=== PATIENT | male | born 1930 | race Caucasian/White ===

== ENCOUNTER 2016-09-22 17:05 | Inpatient (IN) | payer MEDICARE, OTHER ==
[2016-09-22] MEDS ORDERED: METHYLPREDNISOLONE 125 MG/2 ML VIAL IV ONE (17:14)
[2016-09-22] MEDS ORDERED: NS 1,000 ML IV ONE (17:14)
[2016-09-22 17:23] LABS: ALLEN'S TEST PASS; BEb -3.3 (+/- 2); TCO2 22.4 MMOL/L (23-27)
[2016-09-22 17:26] LABS: ABG Draw Site Right Radial
--- NOTE | 2016-09-22 17:28 | EDPRACDOC ---
- General Information Chief Complaint: Dyspnea/Resp distress Stated Complaint: SYNCOPAL Time Seen by Provider: 09/22/16 17:07 Information Source: Patient Mode Of Arrival: Ambulance Home Medications: Home Medications Albuterol Sulfate [Proair Hfa] 2 puff INH Q4-6H PRN 09/22/16 Atorvastatin Calcium [Lipitor] 20 mg PO QHS 09/22/16 Donepezil HCl 5 mg PO DAILY 09/22/16 Finasteride [Proscar] 5 mg PO DAILY 09/22/16 Fluticasone/Vilanterol [Breo Ellipta 100-25 Mcg INH] 1 puff INH BID 09/22/16 Gabapentin 600 mg PO BID 09/22/16 Glimepiride [Amaryl] 2 mg PO DAILY 09/22/16 Lisinopril [Prinivil] 10 mg PO DAILY 09/22/16 Tamsulosin HCl [Flomax] 0.4 mg PO QHS 09/22/16 Verapamil HCl [Verapamil Sr] 120 mg PO BID 09/22/16 Allergies/Adverse Reactions: Allergies Allergy/AdvReac Type Severity Reaction Status Date / Time No Known Allergies Allergy Verified 09/22/16 20:59 - History of Present Illness 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 HE WAS BEING SEEN THERE FOR FOLLOW UP AND CONTINUED SICKNESS. PT WAS GIVEN ANTIBIOTICS FOR PNA. PT WAS AT THE OFFICE TODAY AND HAD A PERIOD OF UNRESPONSIVENESS. 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/Treatments Given Neb Treatment(Albuterol) EMS Treatment ALS ED Past Medical History - History Reviewed Yes Nurses notes reviewed and agree except as marked - Patient Medical History Cardiac History: Reports: Hypertension, Hypercholesterolemia Respiratory History: Reports: COPD Systemic History: Reports: Diabetes EDM Review of Systems - Review of Systems ROS Negative Except as Marked: Yes All systems reviewed and were negative except as marked - Physical Exam Constitutional: Alert Oriented to: Time, Person, Place Last recorded Vital Signs: Last Vital Signs Temp 98.8 F 09/22/16 17:13 Pulse 87 09/22/16 17:13 Resp 22 09/22/16 17:13 BP 119/59 L 09/22/16 17:13 Pulse Ox 94 09/22/16 17:13 Oxygen Pulse Oxygen Saturation 94 O2 Device Room Air Oxygen Flow Rate Fraction of Inspired Oxygen ( FIO2) Exam: PT VERY HARD OF HEARING - HEENT Head: Normal ( normocephalic) Eye Exam: Normal (PERRL, EOMI, Sclera white) Oropharynx: Normal (Pharynx:Moist without exudate,Gums-no swelling) Tympanic Membrane: Normal Nose: No Symptoms Reported (septum midline) Neck: Normal (FROM, trachea at midline) - Respiratory/Cardiovascular Respiratory: Rales, Rhonchi, Wheezes Cardiovascular: Normal (RRR without murmur, gallop or rub) - GI Auscultation: Normal (NABS) Palpation: Normal (Soft,No rebound or guarding, non distended) Tenderness: Non tender Antoine's Sign: Negative Rectal Exam: Deferred - Musculoskeletal Back: Normal (Non-Tender) Extremities: Normal (Normal tone, Pulses 2+ No cyanosis or edema, FROM) - Integumentary Skin: Normal, Warm, Dry Lymphatics: Normal (no adenopathy) - Neurologic Memory Impaired: Normal Motor Function: Normal (Normal tone, Pulses 2+ No cyanosis or edema, FROM) Cranial Nerve: Normal (CN II-X11 intact sensation, strength 5/5) Cerebellar: Normal Mood Description: Normal Perception: Normal ED Procedures - Central Line Informed of risks, benefits and alternatives described.: Yes Central Line Informed Consent Signed: Written Indication: Hypotension, Volume Resuscitation Line Procedure: Chlorahexadine, Sterile drapes applied, Sterile dressing applied Equipment used during procedure: Hat and Mask, Sterile Gown, Sterile Gloves Line Lumen: triple Central Line Postion: femoral (R) Anesthesia: Lidocaine cc's of anesthesia: 5 Line Position approached and secured by standard fashion: sutured, good blood return Complications: none Post Central Line placement CXR: Not ordered Notes: US ASSISTED FEMORAL LINE PLACEMENT. PT TOLERATED WELL ED SOB MDM - Differential Diagnosis Differential Diagnosis: Pnuemonia, Other - Results Result Diagrams: 09/23/16 06:15 09/23/16 06:15 - EKG EKG #1 EKG Time: 17:17 -: Yes EKG interpreted by me Rate: bpm: 84 Camilla: Normal Rhythm: Paced Block: None Hypertrophy: None ST: Normal - Departure Disposition: Admit IP To This Hospital Condition: Stable Final Diagnosis: Dehydration, Encounter for central line placement Pneumonia Qualifiers: Pneumonia type: due to unspecified organism Laterality: unspecified laterality Lung location: unspecified part of lung Qualified Code(s): J18.9 - Pneumonia, unspecified organism Education/Counseling Given To: Patient Education/Counseling Given Regarding: Diagnosis, Treatment, Prognosis, Follow Up Decision to Admit Time: 19:10 Decision to admit date: 09/24/16 Decision to admit: from ED - Physician Consulted Hospitalist Time Called: 19:10 Provider Called: Praneeth Reno Time Support Services Rep Returned Call: 19:10
[2016-09-22 17:56] LABS: MPV 8.2 fL (7.4-10.4)
[2016-09-22 18:12] LABS: PARTIAL THROMB. TIME 28.7 SEC (22-35); PT-INR 1.1
[2016-09-22 18:13] LABS: BLOOD UREA NITROGEN 53 MG/DL (9-20); CALC CORRECTED 9.7 MG/DL (8.4-10.2); CALCULATED OSMOLALITY 285 MOs/Kg (270-290); CHLORIDE 102 mEq/L (98-107); CPK TOTAL WITH POSSIBLE MB 229 IU/L (55-170); GLUCOSE 289 MG/DL (70-99); SODIUM LEVEL 135 mEq/L (137-146); TOTAL PROTEIN 6.5 G/DL (6.3-8.2)
[2016-09-22 18:28] LABS: CPKMB 7.2 ng/mL (0-4.5); CPKMB RELATIVE INDEX 3.1 (0.0-2.2)
--- NOTE | 2016-09-22 19:02 | DIRPT ---
CLINICAL DATA: Short of breath for 1 week. Cough/congestion. Weakness. EXAM: CHEST 2 VIEW COMPARISON: None FINDINGS: Lateral view degraded by patient arm position. Moderate thoracic spondylosis. Apical lordotic frontal radiograph, with minimal exclusion of the upper chest. Hyperinflation. Midline trachea. Pacer with leads at right atrium and right ventricle. No lead discontinuity. Borderline cardiomegaly. Suspect mild left base airspace disease. IMPRESSION: Suspicion of mild left base airspace disease. of indeterminate acuity, given absence of prior exams. Followup PA and lateral chest X-ray is recommended in 3-4 weeks following trial of antibiotic therapy to ensure resolution and exclude underlying malignancy. Electronically Signed By: Linus Lamar M.D. On: 09/22/2016 19:00
--- NOTE | 2016-09-22 19:07 | DIRPT ---
CLINICAL DATA: Altered mental status. Syncope. EXAM: CT HEAD WITHOUT CONTRAST TECHNIQUE: Contiguous axial images were obtained from the base of the skull through the vertex without intravenous contrast. COMPARISON: 07/14/2016 FINDINGS: Sinuses/Soft tissues: Minimal ethmoid air cell mucosal thickening. Other paranasal sinuses are and mastoid air cells are clear. Intracranial: Mild low density in the periventricular white matter likely related to small vessel disease. Expected cerebral and cerebellar volume loss for age. Bilateral vertebral and carotid intracranial atherosclerosis. No mass lesion, hemorrhage, hydrocephalus, acute infarct, intra-axial, or extra-axial fluid collection. IMPRESSION: 1. Normal head CT for age. 2. Minimal sinus disease. Electronically Signed By: Linus Lamar M.D. On: 09/22/2016 19:05
[2016-09-22 19:35] LABS: SEG NEUTROPHIL 95 % (45-76); TOTAL CELL COUNT 100
[2016-09-22] MEDS ORDERED: ACETAMINOPHEN 325 MG/TAB TABLET PO PRN (19:35)
[2016-09-22] MEDS ORDERED: ONDANSETRON HCL 4 MG/2 ML VIAL IV PRN (19:35)
[2016-09-22] MEDS ORDERED: GLUCAGON 1 MG VIAL SQ PRN (19:36)
[2016-09-22] MEDS ORDERED: DEXTROSE 25 GM/50 ML PFS IV PRN (19:36)
[2016-09-22] MEDS ORDERED: GLUCOSE (ORAL GEL) 15 GM TUBE PO PRN (19:36)
[2016-09-22] MEDS ORDERED: ALBUTEROL 0.083% 3 ML NEB NEB PRN (19:36)
--- NOTE | 2016-09-22 20:09 | HISTPHYS ---
- Chief Complaint Pneumonia - History of Present Illness This is a pleasant 85-year-old male who is physically quite fit and works out of plan if it is several times a week, who was recently treated as an outpatient for community-acquired pneumonia by his primary care physician but has continued to be weak and was taken to urgent care by his son this morning due to increased tremors. While he was at urgent care, there is concern the me he may have experienced some syncope, but his son tells me that he feels a because his father was week he was just in a deep sleep and woke up slightly confused. In any case, they say that he has been short of breath and coughing, though does not productive of anything. He has not had any fevers at home. He completed a course of p.o. azithromycin 2 days ago, but continued to be weak. Here in the emergency department, he was found to have what looks like a basilar pneumonia. Denies any chest pain, diarrhea, nausea, vomiting, or rashes on the skin. No weight loss. He has had a decrease in appetite. - Medical History Cardiac History: Reports: Hypertension, Hypercholesterolemia Respiratory History: Reports: COPD Systemic History: Reports: Diabetes - Medictions/Allergies Allergies No Known Allergies Allergy (Verified 09/22/16 17:18) Home Medications Albuterol Sulfate [Proair Hfa] 2 puff INH Q4-6H PRN 09/22/16 Atorvastatin Calcium [Lipitor] 20 mg PO QHS 09/22/16 Donepezil HCl 5 mg PO DAILY 09/22/16 Finasteride [Proscar] 5 mg PO DAILY 09/22/16 Fluticasone/Vilanterol [Breo Ellipta 100-25 Mcg INH] 1 puff INH BID 09/22/16 Gabapentin 600 mg PO BID 09/22/16 Glimepiride [Amaryl] 2 mg PO DAILY 09/22/16 Lisinopril [Prinivil] 10 mg PO DAILY 09/22/16 Tamsulosin HCl [Flomax] 0.4 mg PO QHS 09/22/16 Verapamil HCl [Verapamil Sr] 120 mg PO BID 09/22/16 - Social History Smoking Status: Former smoker - Review of Systems Yes All systems reviewed and were negative except as marked (And as mentioned in the history of present illness above.) - Physical Exam Vital Signs: Initial Vitals Temperature 98.8 F 09/22/16 17:13 Pulse Rate 87 09/22/16 17:13 Respiratory Rate 22 09/22/16 17:13 Blood Pressure 119/59 L 09/22/16 17:13 Pulse Oxygen Saturation 94 09/22/16 17:13 Oriented to: Time, Person, Place Exam: Elderly male appearing his stated age. He is awake and alert, hard of hearing. - HEENT Head: Normal (normocephalic,atraumatic, trachea midline) Eye: Normal (EOMI, Sclera white) Oropharynx: Normal (moist) Nose: No Symptoms Reported (without discharge or bleeding) Respiratory: Normal - CTA (Clear to auscultation bilaterally, no wheezing,rales or rhonchi. No use of accessory muscles) Cardiovascular: Normal (RRR, no murmurs, rubs or gallops) - GI Palpation: Normal (soft, non distended and nontender) - Musculoskeletal Extremities: Normal (normal tone, no cyanosis or edema) - Focused CV Perfusion Exam Vital Signs: Last Vital Signs Temp 98.8 F 09/22/16 17:13 Pulse 87 09/22/16 17:13 Resp 22 09/22/16 17:13 BP 119/59 L 09/22/16 17:13 Pulse Ox 94 09/22/16 17:13 - Lab Results Laboratory Tests 09/22/16 09/22/16 09/22/16 17:15 17:40 17:40 WBC 20.7 H Hgb 12.1 L INR pO2 59.0 L Sodium 135 L Potassium 5.0 BUN 53 H Creatinine 2.50 H 09/22/16 17:40 WBC Hgb INR 1.1 pO2 Sodium Potassium BUN Creatinine - Diagnostic Findings Chest x-ray: Lateral view degraded by patient arm position. Moderate thoracic spondylosis. Apical lordotic frontal radiograph, with minimal exclusion of the upper chest. Hyperinflation. Midline trachea. Pacer with leads at right atrium and right ventricle. No lead discontinuity. Borderline cardiomegaly. Suspect mild left base airspace disease. - Assessment (1) Pneumonia J18.9 - PNEUMONIA, UNSPECIFIED ORGANISM Acute Qualifiers: Pneumonia type: due to unspecified organism Laterality: unspecified laterality Lung location: unspecified part of lung Qualified Code(s): J18.9 - Pneumonia, unspecified organism With hypoxia, weakness and anorexia. Treat empirically with IV azithromycin and Rocephin. Son at the bedside thinks that his father completely better, but then got worse again after he developed some viral syndrome with congestion. Could consider change to different agent if he does not improve on this regimen quickly. RT consulted for O2 supplementation. Evidence based care pneumonia order set has been utilized. (2) GAURANG (acute kidney injury) N17.9 - ACUTE KIDNEY FAILURE, UNSPECIFIED Acute Baseline renal function is unknown, will hold his TANYA-inhibitor and follow renal function daily. (3) Weakness R53.1 - WEAKNESS Acute Likely due to his pneumonia and illness. Physical therapy has been consulted. (4) HLD (hyperlipidemia) E78.5 - HYPERLIPIDEMIA, UNSPECIFIED Acute Continue home statin (5) Dementia F03.90 - UNSPECIFIED DEMENTIA WITHOUT BEHAVIORAL DISTURBANCE Acute Continue home medication. He does not have a history of behavioral disturbance. (6) DMII (diabetes mellitus, type 2) E11.9 - TYPE 2 DIABETES MELLITUS WITHOUT COMPLICATIONS Acute Check hemoglobin A1c and urine microalbumin. Diabetic diet when eating. Continue home medication, as well as q.a.c. and HS sliding scale insulin. Case Care Discussed with: Patient, Family Total Time: 49
[2016-09-22] MEDS ORDERED: Non-Formulary Medication ITEM (Gabapentin [Gabapentin] 600 MG) PO SCH (21:00)
[2016-09-22] MEDS ORDERED: VERAPAMIL HCL 120 MG PO SCH (21:00)
[2016-09-22] MEDS: NS 1,000 ML IV SCH (22:09)
[2016-09-22] MEDS: AZITHROMYCIN 500 MG in D5W 250 ML IV SCH (22:09)
[2016-09-22] MEDS: ENOXAPARIN 30 MG/0.3 ML PFS SQ SCH (22:09)
[2016-09-22] MEDS: GABAPENTIN 300 MG CAP PO SCH (22:10)
[2016-09-22] MEDS: Verapamil 120 MG TAB PO SCH (22:10)
[2016-09-22] MEDS: TAMSULOSIN HCL 0.4 MG CAP PO SCH (22:10)
[2016-09-22] MEDS: REGULAR INSULIN 100 UNITS/ML - 3 ML VIAL SQ SCH (22:10)
[2016-09-22] MEDS: ATORVASTATIN 20 MG TAB PO SCH (22:10)
[2016-09-22 22:20] LABS: CPKMB 17.4 ng/mL (0-4.5)
[2016-09-22] MEDS: CEFTRIAXONE 1 GM in D5W 100 ML IV SCH (23:27)
[2016-09-23 06:31] LABS: MPV 8.6 fL (7.4-10.4)
[2016-09-23] MEDS: REGULAR INSULIN 100 UNITS/ML - 3 ML VIAL SQ SCH ×4 (06:33→20:51)
[2016-09-23] MEDS: GLIMEPIRIDE 2 MG TAB PO SCH (06:34)
[2016-09-23 06:50] LABS: LEUKOCYTES/URINE 2+ (NEGATIVE); NITRITE/URINE NEG (NEGATIVE); RBC/URINE 20-30 (0-2); URINE OCCULT BLOOD 2+ (NEG/TRACE); WBC/URINE TNTC (0-2)
[2016-09-23 07:20] LABS: BLOOD UREA NITROGEN 57 MG/DL (9-20); CALCIUM 8.4 MG/DL (8.4-10.2); CALCULATED OSMOLALITY 292 MOs/Kg (270-290); CHLORIDE 102 mEq/L (98-107); GLUCOSE 343 MG/DL (70-99); SODIUM LEVEL 136 mEq/L (137-146)
[2016-09-23] MEDS: Verapamil 120 MG TAB PO SCH ×2 (07:56→19:53)
[2016-09-23] MEDS: GABAPENTIN 300 MG CAP PO SCH ×2 (07:56→19:53)
[2016-09-23] MEDS: DONEPEZIL HCL 5 MG TAB PO SCH (07:56)
[2016-09-23] MEDS: FINASTERIDE 5 MG TAB PO SCH (07:56)
[2016-09-23] MEDS ORDERED: Vaccine Screening Complete SCH (12:00)
--- NOTE | 2016-09-23 13:28 | GENMEDPROG ---
Chief Complaint: Patient feeling rather weak. Not feeling much improved at all. Subjective Note: 85-year-old gentleman admitted to our facility with pneumonia and renal failure. I have requested labs from Dr. Fernandes is office. We have no prior labs on the patient and appears that his creatinine is 2.4. Notes Reviewed: Yes Events from last night noted and discussed with Clinical Staff Current Medication List: Reviewed Currently: Reports: Cough, JIMÉNEZ, SOB. Denies: Nausea and Vomiting, Reflux Sx, Abdominal Pain DVT Prophylaxis: Yes - Physical Examination Vital Signs and I&O: Last Vital Signs Temp 97.6 F 09/23/16 11:22 Pulse 62 09/23/16 11:22 Resp 16 09/23/16 11:22 BP 115/59 L 09/23/16 11:22 Pulse Ox 93 09/23/16 11:22 Oxygen Pulse Oxygen Saturation 93 O2 Device Room Air Oxygen Flow Rate 2 Fraction of Inspired Oxygen ( FIO2) Intake & Output 09/20/16 09/21/16 09/22/16 09/23/16 23:59 23:59 23:59 23:59 Intake Total 200 1298 Output Total 700 Balance 200 598 Patient's weight 67.631 kg 67.585 kg General: Alert HEENT: Normal (Normocephalic, atraumatic;EOMI.Sclera white, Nares patent, without discharge or bleeding. No oropharyngeal lesions or erythema. Mucous membranes are dry.) Neck: Non-tender, Full range of motion, Normal Trachea alignment, Normal inspection (No cervical lymphadenopathy. No supraclavicular lymphadenopathy.), No Masses palpable, Supple Lymphatics: Normal (No lymph node swelling or pain.) Respiratory: Accessory Muscle Use, Diminished, Rales, Wheezes Cardiovascular: Regular rate and rhythm (No bradycardia or tachycardia), Normal S1, No Gallops,Rubs/Murmurs, Normal S2, Good Pedal Pulses (DP pulses 2+ bilaterally) GI: Normal bowel sounds (normal active sounds), Soft (non-distended), Non tender , No hepatospenomegaly, No masses Extremities/Musculoskeletal: Normal pulses (DP pulses 2+ bilaterally) Skin: Warm,Dry and Intact, No rashes, No significant lesion Neurological: Strength at 5/5 X4 ext (Motor 5/5 throughout.), Normal tone, Cranial nerves 3-12 NL ( 2-12 grossly intact.) Psych/Mental Status: Appropriate, Normal Affect Lab/DI/Studies Reviewed: Laboratory Results - last 24 hr 09/22/16 09/22/16 09/22/16 17:15 17:40 17:40 WBC 20.7 H RBC 4.56 L Hgb 12.1 L Hct 37.3 L MCV 82 MCH 26.6 L MCHC 32.5 L RDW 15.3 H Plt Count 119 L MPV 8.2 Neut % (Auto) Cancelled Lymph % (Auto) Cancelled [place] % (Auto) Cancelled Eos % (Auto) Cancelled Baso % (Auto) Cancelled Absolute Neuts (auto) Cancelled Absolute Lymphs (auto) Cancelled Seg Neuts % (Manual) 95 H Band Neutrophils % 2 Lymphocytes % (Manual) 1 L Monocytes % (Manual) 2 Absolute Neutrophils 20.08 H Absolute Lymphocytes 0.21 L Platelet Estimate Dec RBC Morphology Norm PT INR APTT Puncture Site Right radial pH 7.380 pCO2 36.0 pO2 59.0 L HCO3 21.3 L Total CO2 22.4 L Base Excess -3.3 L FiO2 % 21% Specimen Drawn By Garsa Sodium 135 L Potassium 5.0 Chloride 102 Carbon Dioxide 22 Anion Gap 16 BUN 53 H Creatinine 2.50 H Estimated GFR (MDRD) 25 L Glucose 289 H POC Capillary Glucose Hemoglobin A1c Calculated Osmolality 285 Lactic Acid Calcium 9.0 Corrected Calcium 9.7 Total Bilirubin 1.1 AST 30 ALT 24 Alkaline Phosphatase 114 Creatine Kinase 229 H CK-MB (CK-2) 7.2 H CK-MB (CK-2) Rel Index 3.1 H Troponin I 0.03 [id number]-Blaoewovaum Pept 670 Total Protein 6.5 Albumin 3.3 L Urine Color Urine Clarity Urine pH Ur Specific Webb Urine Protein Urine Glucose (UA) Urine Ketones Urine Occult Blood Urine Nitrite Urine Bilirubin Urine Urobilinogen Ur Leukocyte Esterase Urine RBC Urine WBC Urine WBC Clumps Ur Epithelial Cells Urine Bacteria Urine Mucus 09/22/16 09/22/16 09/22/16 17:40 17:40 17:40 WBC RBC Hgb Hct MCV MCH MCHC RDW Plt Count MPV Neut % (Auto) Lymph % (Auto) [place] % (Auto) Eos % (Auto) Baso % (Auto) Absolute Neuts (auto) Absolute Lymphs (auto) Seg Neuts % (Manual) Band Neutrophils % Lymphocytes % (Manual) Monocytes % (Manual) Absolute Neutrophils Absolute Lymphocytes Platelet Estimate RBC Morphology PT 11.4 H INR 1.1 APTT 28.7 Puncture Site pH pCO2 pO2 HCO3 Total CO2 Base Excess FiO2 % Specimen Drawn By Sodium Potassium Chloride Carbon Dioxide Anion Gap BUN Creatinine Estimated GFR (MDRD) Glucose POC Capillary Glucose Hemoglobin A1c 7.2 H Calculated Osmolality Lactic Acid 1.3 Calcium Corrected Calcium Total Bilirubin AST ALT Alkaline Phosphatase Creatine Kinase CK-MB (CK-2) CK-MB (CK-2) Rel Index Troponin I [id number] Pept Total Protein Albumin Urine Color Urine Clarity Urine pH Ur Specific Webb Urine Protein Urine Glucose (UA) Urine Ketones Urine Occult Blood Urine Nitrite Urine Bilirubin Urine Urobilinogen Ur Leukocyte Esterase Urine RBC Urine WBC Urine WBC Clumps Ur Epithelial Cells Urine Bacteria Urine Mucus 09/22/16 09/22/16 09/22/16 20:59 21:05 23:55 WBC RBC Hgb Hct MCV MCH MCHC RDW Plt Count MPV Neut % (Auto) Lymph % (Auto) [place] % (Auto) Eos % (Auto) Baso % (Auto) Absolute Neuts (auto) Absolute Lymphs (auto) Seg Neuts % (Manual) Band Neutrophils % Lymphocytes % (Manual) Monocytes % (Manual) Absolute Neutrophils Absolute Lymphocytes Platelet Estimate RBC Morphology PT INR APTT Puncture Site pH pCO2 pO2 HCO3 Total CO2 Base Excess FiO2 % Specimen Drawn By Sodium Potassium Chloride Carbon Dioxide Anion Gap BUN Creatinine Estimated GFR (MDRD) Glucose POC Capillary Glucose 326 H Hemoglobin A1c Calculated Osmolality Lactic Acid Calcium Corrected Calcium Total Bilirubin AST ALT Alkaline Phosphatase Creatine Kinase 579 H CK-MB (CK-2) 17.4 H CK-MB (CK-2) Rel Index 3.0 H Troponin I 0.04 0.04 Qaz-[id number]-Mdeyzanabvl Pept Total Protein Albumin Urine Color Urine Clarity Urine pH Ur Specific Webb Urine Protein Urine Glucose (UA) Urine Ketones Urine Occult Blood Urine Nitrite Urine Bilirubin Urine Urobilinogen Ur Leukocyte Esterase Urine RBC Urine WBC Urine WBC Clumps Ur Epithelial Cells Urine Bacteria Urine Mucus 09/23/16 09/23/16 09/23/16 06:01 06:15 06:15 WBC 17.0 H RBC 4.37 L Hgb 11.7 L Hct 35.8 L MCV 82 MCH 26.7 L MCHC 32.7 L RDW 15.5 H Plt Count 111 L MPV 8.6 Neut % (Auto) Lymph % (Auto) [place] % (Auto) Eos % (Auto) Baso % (Auto) Absolute Neuts (auto) Absolute Lymphs (auto) Seg Neuts % (Manual) Band Neutrophils % Lymphocytes % (Manual) Monocytes % (Manual) Absolute Neutrophils Absolute Lymphocytes Platelet Estimate RBC Morphology PT INR APTT Puncture Site pH pCO2 pO2 HCO3 Total CO2 Base Excess FiO2 % Specimen Drawn By Sodium 136 L Potassium 4.4 Chloride 102 Carbon Dioxide 21 L Anion Gap 17 H BUN 57 H Creatinine 2.40 H Estimated GFR (MDRD) 26 L Glucose 343 H POC Capillary Glucose 351 H Hemoglobin A1c Calculated Osmolality 292 H Lactic Acid Calcium 8.4 Corrected Calcium Total Bilirubin AST ALT Alkaline Phosphatase Creatine Kinase CK-MB (CK-2) CK-MB (CK-2) Rel Index Troponin I [id number] Pept Total Protein Albumin Urine Color Urine Clarity Urine pH Ur Specific Webb Urine Protein Urine Glucose (UA) Urine Ketones Urine Occult Blood Urine Nitrite Urine Bilirubin Urine Urobilinogen Ur Leukocyte Esterase Urine RBC Urine WBC Urine WBC Clumps Ur Epithelial Cells Urine Bacteria Urine Mucus 09/23/16 09/23/16 06:25 11:23 WBC RBC Hgb Hct MCV MCH MCHC RDW Plt Count MPV Neut % (Auto) Lymph % (Auto) [place] % (Auto) Eos % (Auto) Baso % (Auto) Absolute Neuts (auto) Absolute Lymphs (auto) Seg Neuts % (Manual) Band Neutrophils % Lymphocytes % (Manual) Monocytes % (Manual) Absolute Neutrophils Absolute Lymphocytes Platelet Estimate RBC Morphology PT INR APTT Puncture Site pH pCO2 pO2 HCO3 Total CO2 Base Excess FiO2 % Specimen Drawn By Sodium Potassium Chloride Carbon Dioxide Anion Gap BUN Creatinine Estimated GFR (MDRD) Glucose POC Capillary Glucose 253 H Hemoglobin A1c Calculated Osmolality Lactic Acid Calcium Corrected Calcium Total Bilirubin AST ALT Alkaline Phosphatase Creatine Kinase CK-MB (CK-2) CK-MB (CK-2) Rel Index Troponin I [id number]-[id number] Pept Total Protein Albumin Urine Color Yellow Urine Clarity Cldy Urine pH 6.0 Ur Specific Webb 1.010 Urine Protein 1+ H Urine Glucose (UA) 3+ Urine Ketones Neg Urine Occult Blood 2+ H Urine Nitrite Neg Urine Bilirubin Neg Urine Urobilinogen <2.0 Ur Leukocyte Esterase 2+ H Urine RBC 20-30 H Urine WBC Tntc H Urine WBC Clumps Present H Ur Epithelial Cells 1+ Urine Bacteria 2+ H Urine Mucus Occ - Assessment (1) Pneumonia Acute J18.9 - PNEUMONIA, UNSPECIFIED ORGANISM Qualifiers: Pneumonia type: due to unspecified organism Laterality: unspecified laterality Lung location: unspecified part of lung Qualified Code(s): J18.9 - Pneumonia, unspecified organism Comment/Plan: Continue current antibiotics. Check labs from Dr. Fernandes is office. Patient still requiring oxygen supplementation. (2) GAURANG (acute kidney injury) Acute N17.9 - ACUTE KIDNEY FAILURE, UNSPECIFIED Comment/Plan: I have requested records from Dr. Fernandes is office regarding creatinine in the past 3 years. We are awaiting results. (3) Weakness Acute R53.1 - WEAKNESS Comment/Plan: Likely due to his pneumonia and illness. Physical therapy has been consulted. (4) HLD (hyperlipidemia) Acute E78.5 - HYPERLIPIDEMIA, UNSPECIFIED Qualifiers: Hyperlipidemia type: other hyperlipidemia Qualified Code(s): E78.4 - Other hyperlipidemia Comment/Plan: Continue home statin (5) Dementia Acute F03.90 - UNSPECIFIED DEMENTIA WITHOUT BEHAVIORAL DISTURBANCE Qualifiers: Dementia type: Alzheimer's disease Alzheimer's disease onset: late-onset Dementia behavioral disturbance: without behavioral disturbance Qualified Code (s): G30.1 - Alzheimer's disease with late onset; F02.80 - Dementia in other diseases classified elsewhere without behavioral disturbance Comment/Plan: Continue home medication. He does not have a history of behavioral disturbance. 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 Diabetic diet when eating. Continue home medication, as well as q.a.c. and HS sliding scale insulin. - Plan Continue present plan. Continue to monitor for improvement. Await laboratory data from Dr. Fernandes is office. Disposition Plan: Hopefully home. Case Care Discussed with: Patient, Family Education/Counseling Given To: Patient, Family Member Education/Counseling Given Regarding: Diagnosis, Treatment, Prognosis, Follow Up , Disposition Plan Total Time: 45 minutes. Critical Care: No Couseling Time (>50% in counseling/coordination): No
[2016-09-23] MEDS: ENOXAPARIN 30 MG/0.3 ML PFS SQ SCH (17:25)
[2016-09-23] MEDS: NS 1,000 ML IV SCH ×2 (17:53→19:49)
[2016-09-23] MEDS: AZITHROMYCIN 500 MG in D5W 250 ML IV SCH (19:49)
[2016-09-23] MEDS: ATORVASTATIN 20 MG TAB PO SCH (19:53)
[2016-09-23] MEDS: TAMSULOSIN HCL 0.4 MG CAP PO SCH (19:53)
[2016-09-23] MEDS: CEFTRIAXONE 1 GM in D5W 100 ML IV SCH (20:53)
[2016-09-24 05:23] LABS: MPV 9.4 fL (7.4-10.4)
[2016-09-24 05:35] LABS: BLOOD UREA NITROGEN 57 MG/DL (9-20); CALCIUM 8.1 MG/DL (8.4-10.2); CALCULATED OSMOLALITY 275 MOs/Kg (270-290); CHLORIDE 103 mEq/L (98-107); GLUCOSE 111 MG/DL (70-99); SODIUM LEVEL 134 mEq/L (137-146)
[2016-09-24] MEDS: REGULAR INSULIN 100 UNITS/ML - 3 ML VIAL SQ SCH ×4 (05:59→20:05)
[2016-09-24] MEDS ORDERED: PNEUMOCOCCAL 0.5 ML VIAL IM ONE (08:00)
[2016-09-24] MEDS ORDERED: FLU VACCINE (Afluria) 0.5 ML DOSE IM ONE (08:00)
[2016-09-24] MEDS: GLIMEPIRIDE 2 MG TAB PO SCH (09:33)
[2016-09-24] MEDS: DONEPEZIL HCL 5 MG TAB PO SCH (09:33)
[2016-09-24] MEDS: GABAPENTIN 300 MG CAP PO SCH ×2 (09:34→20:06)
[2016-09-24] MEDS: Verapamil 120 MG TAB PO SCH ×2 (09:34→20:05)
[2016-09-24] MEDS: FINASTERIDE 5 MG TAB PO SCH (09:34)
--- NOTE | 2016-09-24 10:11 | GENMEDPROG ---
Chief Complaint: sob similar to yesterday Notes Reviewed: Yes Events from last night noted and discussed with Clinical Staff Current Medication List: Reviewed Currently: Reports: Cough, JIMÉNEZ, SOB. Denies: Nausea and Vomiting, Reflux Sx, Abdominal Pain DVT Prophylaxis: Yes - Physical Examination Vital Signs and I&O: Last Vital Signs Temp 97.7 F 09/24/16 08:00 Pulse 74 09/24/16 08:00 Resp 17 09/24/16 08:00 BP 132/69 09/24/16 08:00 Pulse Ox 94 09/24/16 08:00 Oxygen Pulse Oxygen Saturation 94 O2 Device Room Air Oxygen Flow Rate 2 Fraction of Inspired Oxygen ( FIO2) Intake & Output 09/21/16 09/22/16 09/23/16 09/24/16 23:59 23:59 23:59 23:59 Intake Total 200 2242 240 Output Total 1800 800 Balance 200 442 -560 Patient's weight 67.631 kg 67.585 kg 68.81 kg General: Alert, Oriented x3, No acute distress, Well appearing, Well nourished HEENT: Normal (Normocephalic, atraumatic;EOMI.Sclera white, Nares patent, without discharge or bleeding. No oropharyngeal lesions or erythema. Mucous membranes are dry.), Other (poor hearing) Neck: Non-tender, Normal Trachea alignment, Normal inspection (No cervical lymphadenopathy. No supraclavicular lymphadenopathy.), No Masses palpable, Limited range of motion, Supple Lymphatics: Normal (no adenopathy) Respiratory: Diminished, Rales, Rhonchi, Wheezes (vv faint) Cardiovascular: Regular rate and rhythm (No bradycardia or tachycardia), Normal S1, No Gallops,Rubs/Murmurs, Normal S2, Good Pedal Pulses (DP pulses 2+ bilaterally) GI: Normal bowel sounds (normal active sounds), Soft (non-distended), Non tender , No hepatospenomegaly, No masses Extremities/Musculoskeletal: Normal pulses (DP pulses 2+ bilaterally), Swelling (LLE 1+ EDEMA RLE NONE), Edema (LLE 1+ EDEMA RLE NONE). negative: Clubbing, Cyanosis Skin: Warm,Dry and Intact, No rashes, No significant lesion Neurological: Normal tone, Cranial nerves 3-12 NL ( 2-12 grossly intact.) Psych/Mental Status: Appropriate, Normal Affect Lab/DI/Studies Reviewed: 09/24/16 04:25 09/24/16 04:25 Laboratory Results - last 24 hr 09/23/16 09/23/16 09/23/16 11:23 16:18 20:50 WBC RBC Hgb Hct MCV MCH MCHC RDW Plt Count MPV Sodium Potassium Chloride Carbon Dioxide Anion Gap BUN Creatinine Estimated GFR (MDRD) Glucose POC Capillary Glucose 253 H 241 H 225 H Calculated Osmolality Calcium 09/24/16 09/24/16 09/24/16 04:25 04:25 05:09 WBC 18.0 H RBC 3.97 L Hgb 10.6 L Hct 32.4 L MCV 81 MCH 26.7 L MCHC 32.8 L RDW 15.4 H Plt Count 101 L MPV 9.4 Sodium 134 L Potassium 4.7 Chloride 103 Carbon Dioxide 23 Anion Gap 13 BUN 57 H Creatinine 1.90 H Estimated GFR (MDRD) 34 L Glucose 111 H POC Capillary Glucose 139 H Calculated Osmolality 275 Calcium 8.1 L - Assessment (1) GAURANG (acute kidney injury) Acute N17.9 - ACUTE KIDNEY FAILURE, UNSPECIFIED Comment/Plan: Gradually creatinine has dropped to 1.9. Check renal ultrasound for size of kidneys and presence or absence of hydronephrosis. (2) DMII (diabetes mellitus, type 2) Acute E11.9 - TYPE 2 DIABETES MELLITUS WITHOUT COMPLICATIONS Qualifiers: Diabetes mellitus complication status: with kidney complications Diabetes mellitus complication detail: with chronic kidney disease Diabetes mellitus half-way insulin use: without half-way use Chronic kidney disease stage: stage 4 (severe) Qualified Code(s): E11.22 - Type 2 diabetes mellitus with diabetic chronic kidney disease; N18.4 - Chronic kidney disease, stage 4 (severe ) Comment/Plan: Check hemoglobin A1c and urine microalbumin. Diabetic diet when eating. Continue home medication, as well as q.a.c. and HS sliding scale insulin. (3) Pneumonia Acute J18.9 - PNEUMONIA, UNSPECIFIED ORGANISM Qualifiers: Pneumonia type: due to unspecified organism Laterality: unspecified laterality Lung location: unspecified part of lung Qualified Code(s): J18.9 - Pneumonia, unspecified organism Comment/Plan: Continue Rocephin switch Zithromax to Levaquin given the gram- negative sulma growing in urine. (4) HLD (hyperlipidemia) Acute E78.5 - HYPERLIPIDEMIA, UNSPECIFIED Qualifiers: Hyperlipidemia type: other hyperlipidemia Qualified Code(s): E78.4 - Other hyperlipidemia Comment/Plan: Continue home statin (5) UTI (urinary tract infection) Acute N39.0 - URINARY TRACT INFECTION, SITE NOT SPECIFIED Qualifiers: Urinary tract infection type: acute cystitis Hematuria presence: with hematuria Qualified Code(s): N30.01 - Acute cystitis with hematuria Comment/Plan: Urine culture growing gram-negative sulma and patient getting Rocephin. Will switch Zithromax to Levaquin. Disposition Plan: Hopefully home. Case Care Discussed with: Patient, Nursing Staff, Resource Management Education/Counseling Given To: Patient Education/Counseling Given Regarding: Diagnosis, Treatment Total Time: 38 min Critical Care: No Code: 62891 (12+)
[2016-09-24] MEDS: PROBIOTIC BLEND TAB PO SCH ×2 (12:22→16:46)
[2016-09-24] MEDS: NS 1,000 ML IV SCH ×2 (13:49→19:55)
[2016-09-24] MEDS: ENOXAPARIN 30 MG/0.3 ML PFS SQ SCH (16:43)
[2016-09-24] MEDS: AZITHROMYCIN 500 MG in D5W 250 ML IV SCH (19:59)
[2016-09-24] MEDS: TAMSULOSIN HCL 0.4 MG CAP PO SCH (20:06)
[2016-09-24] MEDS: ATORVASTATIN 20 MG TAB PO SCH (20:06)
[2016-09-24] MEDS: CEFTRIAXONE 1 GM in D5W 100 ML IV SCH (21:27)
[2016-09-24] MEDS ORDERED: Levofloxacin 750 mg/150 ml D5W 750 MG/150 ML RTU IV SCH (22:00)
--- NOTE | 2016-09-25 00:14 | DIRPT ---
CLINICAL DATA: Acute onset of renal failure. Initial encounter. EXAM: RENAL / URINARY TRACT ULTRASOUND COMPLETE COMPARISON: None. FINDINGS: Right Kidney: Length: 10.7 cm. Echogenicity within normal limits. No mass or hydronephrosis visualized. Left Kidney: Length: 7.5 cm. Echogenicity within normal limits. No hydronephrosis visualized. A vague hypoechoic mass is noted at the superior pole of the left kidney, measuring 3.0 x 2.1 x 2.2 cm. This is difficult to fully assess due to overlying structures. Bladder: The bladder wall is somewhat irregular in appearance, with an apparent septation. This may reflect underlying debris. IMPRESSION: 1. No evidence of hydronephrosis. 2. Vague hypoechoic mass at the superior pole of the left kidney, measuring 3.0 x 2.1 x 2.2 cm. 3. Somewhat irregular appearance to the bladder wall, with an apparent septation. This may reflect underlying debris. MRI of the abdomen and pelvis would be helpful for further evaluation, to assess the apparent left renal mass and irregular appearance of the bladder, as deemed clinically appropriate. Electronically Signed By: Ken De Dios M.D. On: 09/25/2016 00:12
[2016-09-25] MEDS: GLIMEPIRIDE 2 MG TAB PO SCH (04:33)
[2016-09-25] MEDS: REGULAR INSULIN 100 UNITS/ML - 3 ML VIAL SQ SCH ×4 (04:33→20:05)
[2016-09-25 04:46] LABS: MPV 9.2 fL (7.4-10.4)
[2016-09-25 05:13] LABS: BLOOD UREA NITROGEN 54 MG/DL (9-20); CALCIUM 8.5 MG/DL (8.4-10.2); CALCULATED OSMOLALITY 275 MOs/Kg (270-290); CHLORIDE 104 mEq/L (98-107); GLUCOSE 57 MG/DL (70-99); SODIUM LEVEL 136 mEq/L (137-146)
[2016-09-25] MEDS ORDERED: Magnesium Sulfate 2 gm/D5W 2 GM/50 ML RTU IV ONE (07:00)
[2016-09-25] MEDS: GABAPENTIN 300 MG CAP PO SCH ×2 (09:27→20:57)
[2016-09-25] MEDS: FINASTERIDE 5 MG TAB PO SCH (09:27)
[2016-09-25] MEDS: Verapamil 120 MG TAB PO SCH ×2 (09:28→20:57)
[2016-09-25] MEDS: DONEPEZIL HCL 5 MG TAB PO SCH (09:28)
--- NOTE | 2016-09-25 12:08 | GENMEDPROG ---
Chief Complaint: LESS COUGH SOB BETTER Notes Reviewed: Yes Events from last night noted and discussed with Clinical Staff Current Medication List: Reviewed Currently: Reports: Cough, JIMÉNEZ, SOB. Denies: Nausea and Vomiting, Reflux Sx, Abdominal Pain DVT Prophylaxis: Yes - Physical Examination Vital Signs and I&O: Last Vital Signs Temp 97.4 F L 09/25/16 08:00 Pulse 90 09/25/16 08:00 Resp 20 09/25/16 08:00 BP 158/84 09/25/16 08:00 Pulse Ox 98 09/25/16 08:00 Oxygen Pulse Oxygen Saturation 98 O2 Device Room Air Oxygen Flow Rate 2 Fraction of Inspired Oxygen ( FIO2) Intake & Output 09/22/16 09/23/16 09/24/16 09/25/16 23:59 23:59 23:59 23:59 Intake Total 200 2242 2272 240 Output Total 1800 3000 Balance 200 442 -728 240 Patient's weight 67.631 kg 67.585 kg 68.81 kg 70.216 kg General: Alert, Oriented x3, No acute distress, Well appearing, Well nourished HEENT: Normal (Normocephalic, atraumatic;EOMI.Sclera white, Nares patent, without discharge or bleeding. No oropharyngeal lesions or erythema. Mucous membranes are dry.), Other (poor hearing) Neck: Non-tender, Normal Trachea alignment, Normal inspection (No cervical lymphadenopathy. No supraclavicular lymphadenopathy.), No Masses palpable, Limited range of motion, Supple Lymphatics: Normal (no adenopathy) Respiratory: Diminished, Rales, Rhonchi, Wheezes (vv faint) Cardiovascular: Regular rate and rhythm (No bradycardia or tachycardia), Normal S1, No Gallops,Rubs/Murmurs, Normal S2, Good Pedal Pulses (DP pulses 2+ bilaterally) GI: Normal bowel sounds (normal active sounds), Soft (non-distended), Non tender , No hepatospenomegaly, No masses Extremities/Musculoskeletal: Normal pulses (DP pulses 2+ bilaterally), Swelling (LLE 1+ EDEMA RLE NONE), Edema (LLE 1+ EDEMA RLE NONE). negative: Clubbing, Cyanosis Skin: Warm,Dry and Intact, No rashes, No significant lesion Neurological: Normal tone, Cranial nerves 3-12 NL ( 2-12 grossly intact.) Psych/Mental Status: Appropriate, Normal Affect Lab/DI/Studies Reviewed: 09/25/16 04:10 09/25/16 04:10 Laboratory Results - last 24 hr 09/23/16 09/24/16 09/24/16 06:25 12:07 15:41 WBC RBC Hgb Hct MCV MCH MCHC RDW Plt Count MPV Sodium Potassium Chloride Carbon Dioxide Anion Gap BUN Creatinine Estimated GFR (MDRD) Glucose POC Capillary Glucose 229 H 109 H Calculated Osmolality Calcium Magnesium Ur Random Microalbumin 87.8 09/24/16 09/25/16 09/25/16 19:24 04:10 04:10 WBC 19.3 H RBC 4.65 L Hgb 12.3 L D Hct 38.0 L MCV 82 MCH 26.5 L MCHC 32.4 L RDW 15.3 H Plt Count 154 MPV 9.2 Sodium 136 L Potassium 4.5 Chloride 104 Carbon Dioxide 22 Anion Gap 15 BUN 54 H Creatinine 1.70 H Estimated GFR (MDRD) 38 L Glucose 57 L POC Capillary Glucose 85 Calculated Osmolality 275 Calcium 8.5 Magnesium Ur Random Microalbumin 09/25/16 09/25/16 09/25/16 04:10 04:31 05:04 WBC RBC Hgb Hct MCV MCH MCHC RDW Plt Count MPV Sodium Potassium Chloride Carbon Dioxide Anion Gap BUN Creatinine Estimated GFR (MDRD) Glucose POC Capillary Glucose 53 L 70 Calculated Osmolality Calcium Magnesium 1.90 Ur Random Microalbumin Microbiology 09/23/16 06:25 Urine - Unknown Urine Culture - Final Pseudomonas aeruginosa MDRO RERSIST TO QUINOLONES - Assessment (1) GAURANG (acute kidney injury) Acute N17.9 - ACUTE KIDNEY FAILURE, UNSPECIFIED Comment/Plan: Gradually creatinine has dropped to 1.7. Check renal ultrasound for size of kidneys and presence or absence of hydronephrosis. (2) DMII (diabetes mellitus, type 2) Acute E11.9 - TYPE 2 DIABETES MELLITUS WITHOUT COMPLICATIONS Qualifiers: Diabetes mellitus complication status: with kidney complications Diabetes mellitus complication detail: with chronic kidney disease Diabetes mellitus skilled nursing insulin use: without skilled nursing use Chronic kidney disease stage: stage 4 (severe) Qualified Code(s): E11.22 - Type 2 diabetes mellitus with diabetic chronic kidney disease; N18.4 - Chronic kidney disease, stage 4 (severe ) Comment/Plan: Check hemoglobin A1c and urine microalbumin. Diabetic diet when eating. Continue home medication, as well as q.a.c. and HS sliding scale insulin. (3) UTI (urinary tract infection) Acute N39.0 - URINARY TRACT INFECTION, SITE NOT SPECIFIED Qualifiers: Urinary tract infection type: acute cystitis Hematuria presence: with hematuria Qualified Code(s): N30.01 - Acute cystitis with hematuria Comment/Plan: Urine culture growing gram-negative sulma and patient getting Rocephin. Will switch Zithromax to Levaquin. (4) Pneumonia Acute J18.9 - PNEUMONIA, UNSPECIFIED ORGANISM Qualifiers: Pneumonia type: due to unspecified organism Laterality: unspecified laterality Lung location: unspecified part of lung Qualified Code(s): J18.9 - Pneumonia, unspecified organism Comment/Plan: Continue Rocephin switch Zithromax to Levaquin given the gram- negative sulma growing in urine. (5) HLD (hyperlipidemia) Acute E78.5 - HYPERLIPIDEMIA, UNSPECIFIED Qualifiers: Hyperlipidemia type: other hyperlipidemia Qualified Code(s): E78.4 - Other hyperlipidemia Comment/Plan: Continue home statin Disposition Plan: Hopefully home soon. Case Care Discussed with: Patient, Family, Nursing Staff, Resource Management Education/Counseling Given To: Patient, Family Member Education/Counseling Given Regarding: Diagnosis, Treatment Total Time: 37 min Critical Care: No Code: 84258 (12+)
[2016-09-25] MEDS: PHENAZOPYRIDINE 100 MG TAB PO SCH ×2 (13:25→20:57)
[2016-09-25] MEDS: PROBIOTIC BLEND TAB PO SCH ×2 (13:25→17:53)
[2016-09-25] MEDS: CEFEPIME HYDROCHLORIDE 2 GM in D5W 100 ML IV SCH ×2 (13:25→23:24)
[2016-09-25] MEDS: NS 1,000 ML IV SCH (13:26)
[2016-09-25] MEDS: AZITHROMYCIN 500 MG in D5W 250 ML IV SCH (14:44)
[2016-09-25] MEDS: ENOXAPARIN 30 MG/0.3 ML PFS SQ SCH (17:53)
[2016-09-25] MEDS: TAMSULOSIN HCL 0.4 MG CAP PO SCH (20:57)
[2016-09-25] MEDS: ATORVASTATIN 20 MG TAB PO SCH (20:57)
[2016-09-26 05:16] LABS: MPV 9.3 fL (7.4-10.4)
[2016-09-26 05:31] LABS: BLOOD UREA NITROGEN 44 MG/DL (9-20); CALCIUM 8.4 MG/DL (8.4-10.2); CALCULATED OSMOLALITY 273 MOs/Kg (270-290); CHLORIDE 103 mEq/L (98-107); GLUCOSE 103 MG/DL (70-99); SODIUM LEVEL 136 mEq/L (137-146)
[2016-09-26] MEDS: REGULAR INSULIN 100 UNITS/ML - 3 ML VIAL SQ SCH ×4 (05:31→21:48)
[2016-09-26] MEDS: PHENAZOPYRIDINE 100 MG TAB PO SCH ×3 (05:44→21:48)
[2016-09-26] MEDS: NS 1,000 ML IV SCH ×2 (05:46→14:55)
[2016-09-26] MEDS: Verapamil 120 MG TAB PO SCH ×2 (09:08→21:47)
[2016-09-26] MEDS: FINASTERIDE 5 MG TAB PO SCH (09:08)
[2016-09-26] MEDS: GLIMEPIRIDE 2 MG TAB PO SCH (09:08)
[2016-09-26] MEDS: PROBIOTIC BLEND TAB PO SCH ×2 (09:08→18:24)
[2016-09-26] MEDS: GABAPENTIN 300 MG CAP PO SCH ×2 (09:08→21:47)
[2016-09-26] MEDS: DONEPEZIL HCL 5 MG TAB PO SCH (09:09)
[2016-09-26] MEDS: AZITHROMYCIN 500 MG in D5W 250 ML IV SCH (14:13)
[2016-09-26] MEDS: ENOXAPARIN 30 MG/0.3 ML PFS SQ SCH (18:24)
--- NOTE | 2016-09-26 21:16 | GENMEDPROG ---
Chief Complaint: Feeling slightly better today Notes Reviewed: Yes Events from last night noted and discussed with Clinical Staff Current Medication List: Reviewed Currently: Reports: Cough, JIMÉNEZ, SOB. Denies: Nausea and Vomiting, Reflux Sx, Abdominal Pain DVT Prophylaxis: Yes - Physical Examination Vital Signs and I&O: Last Vital Signs Temp 98.1 F 09/26/16 19:37 Pulse 72 09/26/16 19:37 Resp 18 09/26/16 19:37 BP 147/62 09/26/16 19:37 Pulse Ox 93 09/26/16 19:37 Oxygen Pulse Oxygen Saturation 93 O2 Device Room Air Oxygen Flow Rate 2 Fraction of Inspired Oxygen ( FIO2) Intake & Output 09/23/16 09/24/16 09/25/16 09/26/16 23:59 23:59 23:59 23:59 Intake Total 2242 2272 2073 805 Output Total 1800 3000 1875 2400 Balance 442 -137 198 -1595 Patient's weight 67.585 kg 68.81 kg 70.216 kg 68.719 kg General: Alert, Oriented x3, No acute distress, Well appearing, Well nourished HEENT: Normal (Normocephalic, atraumatic;EOMI.Sclera white, Nares patent, without discharge or bleeding. No oropharyngeal lesions or erythema. Mucous membranes are dry.), Other (poor hearing) Neck: Non-tender, Normal Trachea alignment, Normal inspection (No cervical lymphadenopathy. No supraclavicular lymphadenopathy.), No Masses palpable, Limited range of motion, Supple Lymphatics: Normal (no adenopathy) Respiratory: Diminished, Rales, Rhonchi, Wheezes (vv faint) Cardiovascular: Regular rate and rhythm (No bradycardia or tachycardia), Normal S1, No Gallops,Rubs/Murmurs, Normal S2, Good Pedal Pulses (DP pulses 2+ bilaterally) GI: Normal bowel sounds (normal active sounds), Soft (non-distended), Non tender , No hepatospenomegaly, No masses Extremities/Musculoskeletal: Normal pulses (DP pulses 2+ bilaterally), Swelling (LLE 1+ EDEMA RLE NONE), Edema (LLE 1+ EDEMA RLE NONE). negative: Clubbing, Cyanosis Skin: Warm,Dry and Intact, No rashes, No significant lesion Neurological: Normal tone, Cranial nerves 3-12 NL ( 2-12 grossly intact.) Psych/Mental Status: Appropriate, Normal Affect Lab/DI/Studies Reviewed: 09/26/16 04:25 09/26/16 04:25 Laboratory Results - last 24 hr 09/26/16 09/26/16 09/26/16 04:25 04:25 05:01 WBC 10.2 RBC 4.32 L Hgb 11.7 L Hct 35.3 L MCV 82 MCH 27.0 MCHC 33.1 RDW 15.3 H Plt Count 132 MPV 9.3 Sodium 136 L Potassium 4.7 Chloride 103 Carbon Dioxide 27 Anion Gap 11 BUN 44 H Creatinine 1.80 H Estimated GFR (MDRD) 36 L Glucose 103 H POC Capillary Glucose 118 H Calculated Osmolality 273 Calcium 8.4 09/26/16 09/26/16 09/26/16 12:09 15:41 19:39 WBC RBC Hgb Hct MCV MCH MCHC RDW Plt Count MPV Sodium Potassium Chloride Carbon Dioxide Anion Gap BUN Creatinine Estimated GFR (MDRD) Glucose POC Capillary Glucose 179 H 167 H 131 H Calculated Osmolality Calcium - Assessment (1) GAURANG (acute kidney injury) Acute N17.9 - ACUTE KIDNEY FAILURE, UNSPECIFIED Comment/Plan: Gradually creatinine plateaued. Renal ultrasound is negative for hydronephrosis. (2) DMII (diabetes mellitus, type 2) Acute E11.9 - TYPE 2 DIABETES MELLITUS WITHOUT COMPLICATIONS Qualifiers: Diabetes mellitus complication status: with kidney complications Diabetes mellitus complication detail: with chronic kidney disease Diabetes mellitus regional intermodal truck driver insulin use: without regional intermodal truck driver use Chronic kidney disease stage: stage 4 (severe) Qualified Code(s): E11.22 - Type 2 diabetes mellitus with diabetic chronic kidney disease; N18.4 - Chronic kidney disease, stage 4 (severe ) Comment/Plan: His hemoglobin A1c is 7.2 and urine microalbumin is 87.8. Diabetic diet when eating. Continue home medication, as well as q.a.c. and HS sliding scale insulin. (3) UTI (urinary tract infection) Acute N39.0 - URINARY TRACT INFECTION, SITE NOT SPECIFIED Qualifiers: Urinary tract infection type: acute cystitis Hematuria presence: with hematuria Qualified Code(s): N30.01 - Acute cystitis with hematuria Comment/Plan: Urine culture growing gram-negative sulma and patient getting Rocephin. Will switch Zithromax to Levaquin. (4) Pneumonia Acute J18.9 - PNEUMONIA, UNSPECIFIED ORGANISM Qualifiers: Pneumonia type: due to unspecified organism Laterality: left Lung location: lower lobe of lung Qualified Code(s): J18.1 - Lobar pneumonia, unspecified organism Comment/Plan: Cefepime instead of Rocephin is being used to treat multi drug- resistant Pseudomonas in his urine along with Zithromax for his possible atypical organism associated with pneumonia. The pseudomonal organism is resistant to quinolones. (5) HLD (hyperlipidemia) Acute E78.5 - HYPERLIPIDEMIA, UNSPECIFIED Qualifiers: Hyperlipidemia type: other hyperlipidemia Qualified Code(s): E78.4 - Other hyperlipidemia Comment/Plan: Continue home statin Disposition Plan: Hopefully home soon. Case Care Discussed with: Patient Education/Counseling Given To: Patient Education/Counseling Given Regarding: Diagnosis Total Time: 38 min Critical Care: No Code: 99750 (12+)
[2016-09-26] MEDS: TAMSULOSIN HCL 0.4 MG CAP PO SCH (21:47)
[2016-09-26] MEDS: ATORVASTATIN 20 MG TAB PO SCH (21:47)
[2016-09-26] MEDS: CEFEPIME HYDROCHLORIDE 2 GM in D5W 100 ML IV SCH (21:48)
[2016-09-27 02:51] LABS: MPV 8.7 fL (7.4-10.4)
[2016-09-27 02:59] LABS: BLOOD UREA NITROGEN 39 MG/DL (9-20); CALCIUM 8.5 MG/DL (8.4-10.2); CALCULATED OSMOLALITY 274 MOs/Kg (270-290); CHLORIDE 102 mEq/L (98-107); GLUCOSE 118 MG/DL (70-99); SODIUM LEVEL 137 mEq/L (137-146)
[2016-09-27] MEDS: PHENAZOPYRIDINE 100 MG TAB PO SCH ×3 (04:14→21:01)
[2016-09-27] MEDS: REGULAR INSULIN 100 UNITS/ML - 3 ML VIAL SQ SCH ×4 (04:21→21:24)
[2016-09-27] MEDS: GLIMEPIRIDE 2 MG TAB PO SCH (07:13)
--- NOTE | 2016-09-27 08:12 | GENMEDPROG ---
Chief Complaint: Feel little better today. Notes Reviewed: Yes Events from last night noted and discussed with Clinical Staff Current Medication List: Reviewed Currently: Reports: Cough, JIMÉNEZ, SOB. Denies: Nausea and Vomiting, Reflux Sx, Abdominal Pain DVT Prophylaxis: Yes - Physical Examination Vital Signs and I&O: Last Vital Signs Temp 98.1 F 09/27/16 04:09 Pulse 85 09/27/16 07:11 Resp 18 09/27/16 04:09 BP 147/83 09/27/16 04:09 Pulse Ox 93 09/27/16 06:56 Oxygen Pulse Oxygen Saturation 93 O2 Device Room Air Oxygen Flow Rate 2 Fraction of Inspired Oxygen ( FIO2) Intake & Output 09/24/16 09/25/16 09/26/16 09/27/16 23:59 23:59 23:59 23:59 Intake Total 2272 2073 905 749 Output Total 3000 1875 2825 700 Balance -728 198 -1920 49 Patient's weight 68.81 kg 70.216 kg 68.719 kg 66.814 kg General: Alert, Oriented x3, No acute distress, Well appearing, Well nourished HEENT: Normal (Normocephalic, atraumatic;EOMI.Sclera white, Nares patent, without discharge or bleeding. No oropharyngeal lesions or erythema. Mucous membranes are dry.), Other (poor hearing) Neck: Non-tender, Normal Trachea alignment, Normal inspection (No cervical lymphadenopathy. No supraclavicular lymphadenopathy.), No Masses palpable, Limited range of motion, Supple Lymphatics: Normal (no adenopathy) Respiratory: Diminished, Rales, Rhonchi, Wheezes (vv faint) Cardiovascular: Regular rate and rhythm (No bradycardia or tachycardia), Normal S1, No Gallops,Rubs/Murmurs, Normal S2, Good Pedal Pulses (DP pulses 2+ bilaterally) GI: Normal bowel sounds (normal active sounds), Soft (non-distended), Non tender , No hepatospenomegaly, No masses Extremities/Musculoskeletal: Normal pulses (DP pulses 2+ bilaterally), Swelling (LLE 1+ EDEMA RLE NONE), Edema (LLE 1+ EDEMA RLE NONE). negative: Clubbing, Cyanosis Skin: Warm,Dry and Intact, No rashes, No significant lesion Neurological: Normal tone, Cranial nerves 3-12 NL ( 2-12 grossly intact.) Psych/Mental Status: Appropriate, Normal Affect Lab/DI/Studies Reviewed: 09/27/16 02:55 09/27/16 02:30 Laboratory Results - last 24 hr 09/26/16 09/26/16 09/27/16 15:41 19:39 02:30 WBC RBC Hgb Hct MCV MCH MCHC RDW Plt Count MPV Sodium 137 Potassium 4.6 Chloride 102 Carbon Dioxide 28 Anion Gap 12 BUN 39 H Creatinine 1.80 H Estimated GFR (MDRD) 36 L Glucose 118 H POC Capillary Glucose 167 H 131 H Calculated Osmolality 274 Calcium 8.5 09/27/16 09/27/16 02:55 04:16 WBC 11.2 H RBC 4.41 L Hgb 11.6 L Hct 36.3 L MCV 82 MCH 26.4 L MCHC 32.1 L RDW 15.4 H Plt Count 146 MPV 8.7 Sodium Potassium Chloride Carbon Dioxide Anion Gap BUN Creatinine Estimated GFR (MDRD) Glucose POC Capillary Glucose 129 H Calculated Osmolality Calcium - Assessment (1) GAURANG (acute kidney injury) Acute N17.9 - ACUTE KIDNEY FAILURE, UNSPECIFIED Comment/Plan: Gradually creatinine plateaued. Renal ultrasound is negative for hydronephrosis. (2) DMII (diabetes mellitus, type 2) Acute E11.9 - TYPE 2 DIABETES MELLITUS WITHOUT COMPLICATIONS Qualifiers: Diabetes mellitus complication status: with kidney complications Diabetes mellitus complication detail: with chronic kidney disease Diabetes mellitus usp insulin use: without intermediate project manager use Chronic kidney disease stage: stage 4 (severe) Qualified Code(s): E11.22 - Type 2 diabetes mellitus with diabetic chronic kidney disease; N18.4 - Chronic kidney disease, stage 4 (severe ) Comment/Plan: His hemoglobin A1c is 7.2 and urine microalbumin is 87.8. Diabetic diet when eating. Continue home medication, as well as q.a.c. and HS sliding scale insulin. (3) Pneumonia Acute J18.9 - PNEUMONIA, UNSPECIFIED ORGANISM Qualifiers: Pneumonia type: due to unspecified organism Laterality: left Lung location: lower lobe of lung Qualified Code(s): J18.1 - Lobar pneumonia, unspecified organism Comment/Plan: Cefepime instead of Rocephin is being used to treat multi drug- resistant Pseudomonas in his urine along with Zithromax for his possible atypical organism associated with pneumonia. The pseudomonal organism is resistant to quinolones. (4) HLD (hyperlipidemia) Acute E78.5 - HYPERLIPIDEMIA, UNSPECIFIED Qualifiers: Hyperlipidemia type: other hyperlipidemia Qualified Code(s): E78.4 - Other hyperlipidemia Comment/Plan: Continue home statin (5) UTI (urinary tract infection) Acute N39.0 - URINARY TRACT INFECTION, SITE NOT SPECIFIED Qualifiers: Urinary tract infection type: acute cystitis Hematuria presence: with hematuria Qualified Code(s): N30.01 - Acute cystitis with hematuria Comment/Plan: Pseudomonas aeruginosa multi drug-resistant and have switched antibiotic to cefepime from Levaquin. Case Care Discussed with: Patient Education/Counseling Given To: Patient Education/Counseling Given Regarding: Diagnosis Total Time: 38 min Critical Care: No Code: 04282 (12+)
[2016-09-27] MEDS: NS 1,000 ML IV SCH ×2 (10:06→10:08)
[2016-09-27] MEDS: Verapamil 120 MG TAB PO SCH ×2 (10:07→21:01)
[2016-09-27] MEDS: PROBIOTIC BLEND TAB PO SCH ×2 (10:07→17:22)
[2016-09-27] MEDS: GABAPENTIN 300 MG CAP PO SCH ×2 (10:07→21:00)
[2016-09-27] MEDS: DONEPEZIL HCL 5 MG TAB PO SCH (10:07)
[2016-09-27] MEDS: FINASTERIDE 5 MG TAB PO SCH (10:07)
[2016-09-27] MEDS: AZITHROMYCIN 500 MG in D5W 250 ML IV SCH (13:17)
[2016-09-27] MEDS: ENOXAPARIN 30 MG/0.3 ML PFS SQ SCH (17:21)
--- NOTE | 2016-09-27 17:29 | DIRPT ---
CLINICAL DATA: Followup pneumonia EXAM: CHEST 2 VIEW COMPARISON: 09/22/2016 FINDINGS: Heart size upper normal to mildly enlarged. Stable cardiac pacer. Vascular pattern normal. Right lung is clear. Patchy infiltrate medial left lower lobe unchanged. IMPRESSION: Persistent unchanged left lower lobe infiltrate concerning for pneumonia. Electronically Signed By: Lacho Gallagher M.D. On: 09/27/2016 17:26
--- NOTE | 2016-09-27 20:29 | GENMEDPROG ---
Note CROSS COVER NOTE 09/27/2016 1950 S: NURSE CALLED. PATIENT HAD A 1 SECOND PAUSE WHILE HE WAS SLEEPING. SHE CHECKED ON HIM AFTER THE PAUSE AND HE HAD NO COMPLAINTS AND WAS ASYMPTOMATIC. HE HAS A PACEMAKER. O: Vital Signs - 24 hr 09/26/16 09/26/16 09/27/16 21:52 23:03 04:09 Temperature 98.3 F 98.1 F Pulse Rate 73 69 65 Respiratory 18 18 Rate Blood Pressure 162/71 147/83 Pulse Oxygen 93 Saturation 09/27/16 09/27/16 09/27/16 06:20 06:56 07:11 Temperature Pulse Rate 71 85 Respiratory Rate Blood Pressure Pulse Oxygen 93 Saturation 09/27/16 09/27/16 09/27/16 08:00 10:00 11:37 Temperature 98 F Pulse Rate 70 80 70 Respiratory 18 Rate Blood Pressure 138/76 Pulse Oxygen 92 Saturation 09/27/16 09/27/16 09/27/16 11:55 13:28 14:52 Temperature 98.1 F Pulse Rate 77 82 82 Respiratory 18 Rate Blood Pressure 140/71 Pulse Oxygen 94 Saturation 09/27/16 09/27/16 09/27/16 16:41 17:09 18:00 Temperature 97.9 F Pulse Rate 62 69 63 Respiratory 18 Rate Blood Pressure 138/70 Pulse Oxygen 92 Saturation 09/27/16 20:00 Temperature 98.6 F Pulse Rate 65 Respiratory 18 Rate Blood Pressure 150/66 Pulse Oxygen 92 Saturation Laboratory Results - last 24 hr 09/26/16 09/27/16 09/27/16 19:39 02:30 02:55 WBC 11.2 H RBC 4.41 L Hgb 11.6 L Hct 36.3 L MCV 82 MCH 26.4 L MCHC 32.1 L RDW 15.4 H Plt Count 146 MPV 8.7 Sodium 137 Potassium 4.6 Chloride 102 Carbon Dioxide 28 Anion Gap 12 BUN 39 H Creatinine 1.80 H Estimated GFR (MDRD) 36 L Glucose 118 H POC Capillary Glucose 131 H Calculated Osmolality 274 Calcium 8.5 09/27/16 09/27/16 09/27/16 04:16 11:38 16:07 WBC RBC Hgb Hct MCV MCH MCHC RDW Plt Count MPV Sodium Potassium Chloride Carbon Dioxide Anion Gap BUN Creatinine Estimated GFR (MDRD) Glucose POC Capillary Glucose 129 H 168 H 173 H Calculated Osmolality Calcium A/P: 1. BRIEF PAUSE VS BRADYCARDIA. PATIENT'S HEART RATE HIS BEEN IN THE RANGE OF 62-85 OVER THE LAST DAY. HE IS ASYMPTOMATIC. DISCUSSED CASE WITH DR. ALEJANDRE, WHO STATED A 1 SECOND PAUSE IS NOT VERY LONG , AND IT COULD JUST BE AN INDICATION THAT THE HEART RATE HAD DECREASED ENOUGH THAT THE PACEMAKER THEN KICKED IN. HE SAID THAT GIVEN HIS HEART RATE, THE PATIENT PROBABLY HAS A HEART RATE THAT IS USUALLY ABOVE THE SET PACER LEVEL. HE AGREED TO REVIEW THE RHYTHM STRIP, WHICH WILL BE FAXED TO HIM. NO NEED FOR CONSULT AT THIS TIME, BUT RECOMMENDED CALLING HIM IF THE PATIENT HAD A MUCH LONGER PAUSE. 2. PACEMAKER IN SITU. CHRONIC. NOTED. 3. DM TYPE 2 WITH HYPERGLYCEMIA. E11.65. CONTINUE ACCU-CHECKS AND SLIDING SCALE INSULIN.
[2016-09-27] MEDS: CEFEPIME HYDROCHLORIDE 2 GM in D5W 100 ML IV SCH (20:59)
[2016-09-27] MEDS: ATORVASTATIN 20 MG TAB PO SCH (21:01)
[2016-09-27] MEDS: TAMSULOSIN HCL 0.4 MG CAP PO SCH (21:01)
[2016-09-28 03:36] LABS: MPV 8.9 fL (7.4-10.4)
[2016-09-28 03:50] LABS: BLOOD UREA NITROGEN 38 MG/DL (9-20); CALCIUM 8.7 MG/DL (8.4-10.2); CALCULATED OSMOLALITY 272 MOs/Kg (270-290); CHLORIDE 102 mEq/L (98-107); GLUCOSE 88 MG/DL (70-99); SODIUM LEVEL 137 mEq/L (137-146)
[2016-09-28] MEDS: REGULAR INSULIN 100 UNITS/ML - 3 ML VIAL SQ SCH ×4 (05:50→21:23)
[2016-09-28] MEDS: PHENAZOPYRIDINE 100 MG TAB PO SCH ×3 (05:55→21:22)
[2016-09-28] MEDS: GLIMEPIRIDE 2 MG TAB PO SCH (05:55)
[2016-09-28] MEDS: DONEPEZIL HCL 5 MG TAB PO SCH (08:31)
[2016-09-28] MEDS: GABAPENTIN 300 MG CAP PO SCH ×2 (08:31→21:22)
[2016-09-28] MEDS: Verapamil 120 MG TAB PO SCH ×2 (08:32→21:22)
[2016-09-28] MEDS: FINASTERIDE 5 MG TAB PO SCH (08:32)
--- NOTE | 2016-09-28 10:49 | PCM.CARDCO ---
Consultation Date: 09/28/16 Requesting Physician: Mickey Aquino (arrhythmia) Consulting Doctor: Per Waldron Travel Outside of US in the Last 3 Months?: No Consultation Note: History of Present Illness: The pt is a flinty 85 yo WM who moved from [facility] to [place] this past year to live with his son "because I'm too old to live alone". He is unable to provide detailed or reliable history. Son Cristiano is contacted by phone and relates that pacer was implanted about 4 years ago in [place]. Son secured for pt cardiac and pacermaker f/u at [facility] few months ago, pacer function normal, provided with [employer] home monitoring system. Pt denies chest pain, SOB, dizziness, syncope. Past Medical History: HBP, DM Past Surgical History: pacer implant about 4 years AGO Allergies No Known Allergies Allergy (Verified 09/22/16 20:59) Home Medications Albuterol Sulfate [Proair Hfa] 2 puff INH Q4-6H PRN 09/22/16 Atorvastatin Calcium [Lipitor] 20 mg PO QHS 09/22/16 Donepezil HCl 5 mg PO DAILY 09/22/16 Finasteride [Proscar] 5 mg PO DAILY 09/22/16 Fluticasone/Vilanterol [Breo Ellipta 100-25 Mcg INH] 1 puff INH BID 09/22/16 Gabapentin 600 mg PO BID 09/22/16 Glimepiride [Amaryl] 2 mg PO DAILY 09/22/16 Lisinopril [Prinivil] 10 mg PO DAILY 09/22/16 Tamsulosin HCl [Flomax] 0.4 mg PO QHS 09/22/16 Verapamil HCl [Verapamil Sr] 120 mg PO BID 09/22/16 Social History: Traveled outside the [place] in the last 3 months? No Former smoker , lives with son Cristiano here in [place] Review of Systems: Cursory ROS negative. Physical Examination: Temperature: 98.4 F (09/28/16 07:30)HR: 79 (09/28/16 10:16)RR: 18 (09/28/16 07: 30)BP: 144/78 (09/28/16 07:30) SAT:95 (09/28/16 07:30) [] Physical Exam GEN: THin, age appropriate, alert. Oriented to place VS: as above HEENT: no JVD, carotids noromal CHEST: clear. Stable generator site COR: RR, normal s1, s2, no s3. NO significant murmur or gallop ABD: no distention EXTREM: rad, PT 2+, no edema SKIN: warm dry NEURO: alert, no focal deficit or tremor LAB/DI: [] Laboratory Tests 09/22/16 09/22/16 09/22/16 17:40 21:05 23:55 WBC Hgb Hct Sodium 135 L Potassium 5.0 Chloride Carbon Dioxide BUN 53 H Creatinine 2.50 H AST 30 ALT 24 Creatine Kinase 229 H 579 H CK-MB (CK-2) 7.2 H 17.4 H Troponin I 0.03 0.04 0.04 Oir-U-Aejlerencfj Pept 670 09/28/16 09/28/16 02:38 02:38 WBC 12.1 H Hgb 12.2 L Hct 38.1 L Sodium 137 Potassium 4.9 Chloride 102 Carbon Dioxide 29 BUN 38 H Creatinine 1.70 H AST ALT Creatine Kinase CK-MB (CK-2) Troponin I Pre-Q-Tdfrrqxanzs Pept EKG Sep 22: NSR with atrial sense, electronic ventricular pacing CXR: left lower lobe infiltrate, pacer leads in position, cardiomegaly tele: generally normal pacer function with atrial sense, intermittent ventricular pacing. One short pause, when P waves either conducted with long NE or one non- conducted P wave AV sequential pacing is seen at 60/min There is one 9-beat run of wide complex tachycardia, suggests ventricular tachycardia IMPRESSION: - telemetry raises question of occasional ventricular non- capture. - rare non-sustained ventricular tachycardia - ? underlying structural heart disease - Recommendations PLAN: echocardiogram in AM request [facility] notes for review - will contact [employer], arrange device interrogation and ? reprogramming as appropriate.
--- NOTE | 2016-09-28 11:34 | GENMEDPROG ---
Chief Complaint: Very hard of hearing. Feeling some better. Some pacemaker issues overnight Notes Reviewed: Yes Events from last night noted and discussed with Clinical Staff Current Medication List: Reviewed Currently: Reports: Cough, JIMÉNEZ, SOB. Denies: Nausea and Vomiting, Reflux Sx, Abdominal Pain DVT Prophylaxis: Yes - Physical Examination Vital Signs and I&O: Last Vital Signs Temp 98.4 F 09/28/16 07:30 Pulse 79 09/28/16 10:16 Resp 18 09/28/16 07:30 BP 144/78 09/28/16 07:30 Pulse Ox 95 09/28/16 07:30 Oxygen Pulse Oxygen Saturation 95 O2 Device Room Air Oxygen Flow Rate 2 Fraction of Inspired Oxygen ( FIO2) Intake & Output 09/25/16 09/26/16 09/27/16 09/28/16 23:59 23:59 23:59 23:59 Intake Total 4992 035 1849 578 Output Total 7279 9035 2850 625 Balance 198 -1920 -181 -47 Patient's weight 70.216 kg 68.719 kg 66.814 kg 64.274 kg General: Alert, Oriented x3, No acute distress, Well appearing, Well nourished HEENT: Normal (Normocephalic, atraumatic;EOMI.Sclera white, Nares patent, without discharge or bleeding. No oropharyngeal lesions or erythema. Mucous membranes are dry.), Other (poor hearing) Neck: Non-tender, Normal Trachea alignment, Normal inspection (No cervical lymphadenopathy. No supraclavicular lymphadenopathy.), No Masses palpable, Limited range of motion, Supple Lymphatics: Normal (no adenopathy) Respiratory: Diminished, Rales, Rhonchi, Wheezes (vv faint) Cardiovascular: Regular rate and rhythm (No bradycardia or tachycardia), Normal S1, No Gallops,Rubs/Murmurs, Normal S2, Good Pedal Pulses (DP pulses 2+ bilaterally) GI: Normal bowel sounds (normal active sounds), Soft (non-distended), Non tender , No hepatospenomegaly, No masses Extremities/Musculoskeletal: Normal pulses (DP pulses 2+ bilaterally), Swelling (LLE 1+ EDEMA RLE NONE), Edema (LLE 1+ EDEMA RLE NONE). negative: Clubbing, Cyanosis Skin: Warm,Dry and Intact, No rashes, No significant lesion Neurological: Normal tone, Cranial nerves 3-12 NL ( 2-12 grossly intact.) Psych/Mental Status: Appropriate, Normal Affect Lab/DI/Studies Reviewed: Laboratory Results - last 24 hr 09/27/16 09/27/16 09/27/16 11:38 16:07 20:22 WBC RBC Hgb Hct MCV MCH MCHC RDW Plt Count MPV Sodium Potassium Chloride Carbon Dioxide Anion Gap BUN Creatinine Estimated GFR (MDRD) Glucose POC Capillary Glucose 168 H 173 H 187 H Calculated Osmolality Calcium 09/28/16 09/28/16 09/28/16 02:38 02:38 05:42 WBC 12.1 H RBC 4.63 L Hgb 12.2 L Hct 38.1 L MCV 83 MCH 26.4 L MCHC 32.0 L RDW 15.4 H Plt Count 175 MPV 8.9 Sodium 137 Potassium 4.9 Chloride 102 Carbon Dioxide 29 Anion Gap 11 BUN 38 H Creatinine 1.70 H Estimated GFR (MDRD) 38 L Glucose 88 POC Capillary Glucose 92 Calculated Osmolality 272 Calcium 8.7 09/28/16 10:54 WBC RBC Hgb Hct MCV MCH MCHC RDW Plt Count MPV Sodium Potassium Chloride Carbon Dioxide Anion Gap BUN Creatinine Estimated GFR (MDRD) Glucose POC Capillary Glucose 109 H Calculated Osmolality Calcium - Assessment (1) Pneumonia Acute J18.9 - PNEUMONIA, UNSPECIFIED ORGANISM Qualifiers: Pneumonia type: due to unspecified organism Laterality: left Lung location: lower lobe of lung Qualified Code(s): J18.1 - Lobar pneumonia, unspecified organism Comment/Plan: Continue cefepime and azithromycin. Does have drug resistant Pseudomonas in his urine. This unfortunately is resistant to quinolones. Continue IV antibiotics, pulmonary toilet and supportive care. (2) GAURANG (acute kidney injury) Acute N17.9 - ACUTE KIDNEY FAILURE, UNSPECIFIED Comment/Plan: Creatinine stable at 1.7. Renal ultrasound negative. Continue to monitor. Holding is TANYA -inhibitor. (3) DMII (diabetes mellitus, type 2) Acute E11.9 - TYPE 2 DIABETES MELLITUS WITHOUT COMPLICATIONS Qualifiers: Diabetes mellitus complication status: with kidney complications Diabetes mellitus complication detail: with chronic kidney disease Diabetes mellitus retirement insulin use: without production line technician use Chronic kidney disease stage: stage 4 (severe) Qualified Code(s): E11.22 - Type 2 diabetes mellitus with diabetic chronic kidney disease; N18.4 - Chronic kidney disease, stage 4 (severe ) Comment/Plan: Accu-Cheks and sliding scale insulin. (4) HLD (hyperlipidemia) Acute E78.5 - HYPERLIPIDEMIA, UNSPECIFIED Qualifiers: Hyperlipidemia type: other hyperlipidemia Qualified Code(s): E78.4 - Other hyperlipidemia Comment/Plan: Continue home statin (5) UTI (urinary tract infection) Acute N39.0 - URINARY TRACT INFECTION, SITE NOT SPECIFIED Qualifiers: Urinary tract infection type: acute cystitis Hematuria presence: with hematuria Qualified Code(s): N30.01 - Acute cystitis with hematuria Comment/Plan: Pseudomonas aeruginosa multi drug-resistant and have switched antibiotic to cefepime from Levaquin. Case Care Discussed with: Patient, Nursing Staff, Respiratory Therapy
[2016-09-28] MEDS: PROBIOTIC BLEND TAB PO SCH ×2 (12:08→17:26)
[2016-09-28] MEDS: NS 1,000 ML IV SCH (12:11)
[2016-09-28] MEDS: AZITHROMYCIN 500 MG in D5W 250 ML IV SCH (14:09)
[2016-09-28] MEDS: ENOXAPARIN 30 MG/0.3 ML PFS SQ SCH (17:21)
[2016-09-28] MEDS: CEFEPIME HYDROCHLORIDE 2 GM in D5W 100 ML IV SCH (21:18)
[2016-09-28] MEDS: ATORVASTATIN 20 MG TAB PO SCH (21:22)
[2016-09-28] MEDS: TAMSULOSIN HCL 0.4 MG CAP PO SCH (21:22)
[2016-09-29 03:34] LABS: AUTOMATED BASOPHIL 0.5 % (0-2); AUTOMATED EOSINOPHIL 1.6 % (0-5); AUTOMATED LYMPH 6.5 % (17-44); AUTOMATED MONOCYTE 6.4 % (3-10); MPV 8.5 fL (7.4-10.4)
[2016-09-29 03:44] LABS: BLOOD UREA NITROGEN 41 MG/DL (9-20); CALCIUM 8.5 MG/DL (8.4-10.2); CALCULATED OSMOLALITY 270 MOs/Kg (270-290); CHLORIDE 103 mEq/L (98-107); GLUCOSE 70 MG/DL (70-99); SODIUM LEVEL 136 mEq/L (137-146)
[2016-09-29] MEDS: PHENAZOPYRIDINE 100 MG TAB PO SCH ×2 (06:37→14:22)
[2016-09-29] MEDS: REGULAR INSULIN 100 UNITS/ML - 3 ML VIAL SQ SCH ×4 (06:38→21:48)
[2016-09-29] MEDS: GLIMEPIRIDE 2 MG TAB PO SCH (08:20)
--- NOTE | 2016-09-29 09:57 | PCM.CARD ---
- Subjective Current Assessment: No New Symptoms (Patient is a poor historian and is asymptomatic at this time. He is being treated for pneumonitis and pacemaker evaluation by [employer] brand representative is awaited.) Vital Signs: Last Vital Signs Temp 98.3 F 09/29/16 07:08 Pulse 72 09/29/16 07:30 Resp 18 09/29/16 07:08 BP 127/66 09/29/16 07:08 Pulse Ox 92 09/29/16 07:08 Heart Sounds: S1 & S2 (Heart sounds irregular lungs bilateral air entry with poor inspiratory effort and no pedal edema.) - Assessment/Plan (1) Presence of permanent cardiac pacemaker Acute Z95.0 - PRESENCE OF CARDIAC PACEMAKER Comment/Plan: Pacemaker appeared to be functioning well. I reviewed with the patient is rhythm strips and is pacing well. We are awaiting [employer] brand representative to come in and assess the pacemaker status. 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 History is obtained from the chart and my partner. (3) Pneumonia Acute J18.9 - PNEUMONIA, UNSPECIFIED ORGANISM due to unspecified organism left lower lobe of lung J18.1 - Lobar pneumonia, unspecified organism Comment/Plan: Being treated and appears to be responding. Clinically stable at low level.
[2016-09-29] MEDS: Verapamil 120 MG TAB PO SCH ×2 (10:19→21:48)
[2016-09-29] MEDS: FINASTERIDE 5 MG TAB PO SCH (10:20)
[2016-09-29] MEDS: PROBIOTIC BLEND TAB PO SCH ×2 (10:20→16:34)
[2016-09-29] MEDS: GABAPENTIN 300 MG CAP PO SCH ×2 (10:20→21:47)
[2016-09-29] MEDS: DONEPEZIL HCL 5 MG TAB PO SCH (11:25)
--- NOTE | 2016-09-29 12:29 | CAPUECHO ---
INDICATION: VENTRICULAR TACH HEIGHT: 170.2 cm (5 ft 7.0 in) WEIGHT: 64.0 kg (141.0 lbs) BP: 127/66 BSA: 1.973442 m MEASUREMENTS 2D RVIDd: 3.1 cm IVSd: 1.0 cm LVIDd: 3.8 cm LVPWd: 1.0 cm LVIDs: 3.0 cm EF(Teich): 44.11 % LA Diam: 3.3 cm EF Biplane: 47.20 % LAESV MOD A4C: 34.2 ml LAESV MOD A2C: 43.9 ml LAESV Index (A-L): 26.32 ml/m DOPPLER MV E Jeff: 0.49 m/s MV A Jeff: 0.91 m/s MV PHT: 74.98 ms MVA By PHT: 2.93 cm LVOT Vmax: 0.77 m/s AV Vmax: 1.19 m/s TR Vmax: 2.90 m/s TR maxP mmHg RVSP: 43.63 mmHg FINDINGS ------- Procedure:2D images, m-mode, color and spectral Doppler were obtained and reviewed. ECG rhythm:Sinus rhythm. Study quality:This was a technically adequate study. Left Ventricle:The left ventricular size is normal. Overall left ventricular systolic function is low-normal with, an EF between 50 - 55 %. The diastolic filling pattern indicates impaired relaxat ion. Right Ventricle:The right ventricle is normal in size and function. Pacer wire noted. Left Atrium:The left atrium is normal in size. Right Atrium:The right atrium is normal in size and function. Electronic pacemaker lead seen in th e right atrial cavity. Aortic Valve:The aortic valve is trileaflet and appears structurally normal. There is mild aortic valve sclerosis. Mitral Valve:Normal appearing mitral valve. Mild mitral regurgitation is present. Tricuspid Valve:The tricuspid valve appears structurally normal. No regurgitation noted The righ t ventricular systolic pressure, as measured by Doppler, is 44mmhg. Pulmonic Valve:The pulmonic valve is normal. Trace/mild (physiologic) pulmonic regurgitation. Aorta:The aortic root, ascending aorta and aortic arch appear normal. IVC:Normal inferior vena cava with normal inspiratory collapse. Pericardium:There is no pericardial effusion. CONCLUSIONS 1. The left ventricular size is normal. 2. Overall left ventricular systolic function is low-normal with, an EF between 50 - 55 %. 3. The diastolic filling pattern indicates impaired relaxation. 4. The left atrium is normal in size. 5. Mild mitral regurgitation is present. Electronically Signed By: Augie Quintanilla MD -- Electronically Signed On: 12:28:09
[2016-09-29] MEDS: NS 1,000 ML IV SCH ×2 (12:45→21:47)
[2016-09-29] MEDS: AZITHROMYCIN 500 MG in D5W 250 ML IV SCH (14:24)
[2016-09-29] MEDS: ENOXAPARIN 30 MG/0.3 ML PFS SQ SCH (16:34)
--- NOTE | 2016-09-29 16:40 | GENMEDPROG ---
Chief Complaint: Overall improving. Very hard of hearing and extremely poor historian. Have encouraged activity and mobility. Notes Reviewed: Yes Events from last night noted and discussed with Clinical Staff Current Medication List: Reviewed Currently: Reports: Cough, JIMÉNEZ, SOB. Denies: Nausea and Vomiting, Reflux Sx, Abdominal Pain DVT Prophylaxis: Yes - Physical Examination Vital Signs and I&O: Last Vital Signs Temp 99.0 F 09/29/16 15:35 Pulse 73 09/29/16 15:35 Resp 18 09/29/16 15:35 BP 151/80 09/29/16 15:35 Pulse Ox 95 09/29/16 15:35 Oxygen Pulse Oxygen Saturation 95 O2 Device Room Air Oxygen Flow Rate 2 Fraction of Inspired Oxygen ( FIO2) Intake & Output 09/26/16 09/27/16 09/28/16 09/29/16 23:59 23:59 23:59 23:59 Intake Total 905 2669 1501 663 Output Total 2825 2850 1375 650 Balance -1920 -181 126 13 Patient's weight 68.719 kg 66.814 kg 64.274 kg 64.501 kg General: Alert, Oriented x3, No acute distress, Well appearing, Well nourished HEENT: Normal (Normocephalic, atraumatic;EOMI.Sclera white, Nares patent, without discharge or bleeding. No oropharyngeal lesions or erythema. Mucous membranes are dry.), PERRLA, EOMI, Anicteric Sclera, Other (poor hearing) Neck: Non-tender, Normal Trachea alignment, Normal inspection (No cervical lymphadenopathy. No supraclavicular lymphadenopathy.), No Masses palpable, Limited range of motion, Supple Lymphatics: Normal (no adenopathy). negative: Adenopathy Respiratory: Diminished, Rales, Rhonchi, Wheezes (vv faint) Cardiovascular: Regular rate and rhythm (No bradycardia or tachycardia), Normal S1, No Gallops,Rubs/Murmurs, Normal S2, Good Pedal Pulses (DP pulses 2+ bilaterally) GI: Normal bowel sounds (normal active sounds), Soft (non-distended), Non tender , No hepatospenomegaly, No masses Extremities/Musculoskeletal: Normal pulses (DP pulses 2+ bilaterally), Swelling (LLE 1+ EDEMA RLE NONE), Edema (LLE 1+ EDEMA RLE NONE). negative: Clubbing, Cyanosis Skin: Warm,Dry and Intact, No rashes, No significant lesion Neurological: Normal tone, Cranial nerves 3-12 NL ( 2-12 grossly intact.) Psych/Mental Status: Appropriate, Normal Affect Lab/DI/Studies Reviewed: Laboratory Results - last 24 hr 09/28/16 09/28/16 09/29/16 17:21 20:36 03:00 WBC RBC Hgb Hct MCV MCH MCHC RDW Plt Count MPV Neut % (Auto) Lymph % (Auto) [place] % (Auto) Eos % (Auto) Baso % (Auto) Absolute Neuts (auto) Absolute Lymphs (auto) Sodium 136 L Potassium 5.1 Chloride 103 Carbon Dioxide 29 Anion Gap 9 BUN 41 H Creatinine 1.70 H Estimated GFR (MDRD) 38 L Glucose 70 POC Capillary Glucose 205 H 231 H Calculated Osmolality 270 Calcium 8.5 09/29/16 09/29/16 09/29/16 03:00 04:58 11:36 WBC 13.5 H RBC 4.46 L Hgb 11.7 L Hct 36.5 L MCV 82 MCH 26.2 L MCHC 32.0 L RDW 15.4 H Plt Count 190 MPV 8.5 Neut % (Auto) 85.0 H Lymph % (Auto) 6.5 L [place] % (Auto) 6.4 Eos % (Auto) 1.6 Baso % (Auto) 0.5 Absolute Neuts (auto) 11.48 H Absolute Lymphs (auto) 0.81 Sodium Potassium Chloride Carbon Dioxide Anion Gap BUN Creatinine Estimated GFR (MDRD) Glucose POC Capillary Glucose 89 109 H Calculated Osmolality Calcium 09/29/16 15:39 WBC RBC Hgb Hct MCV MCH MCHC RDW Plt Count MPV Neut % (Auto) Lymph % (Auto) [place]ro % (Auto) Eos % (Auto) Baso % (Auto) Absolute Neuts (auto) Absolute Lymphs (auto) Sodium Potassium Chloride Carbon Dioxide Anion Gap BUN Creatinine Estimated GFR (MDRD) Glucose POC Capillary Glucose 87 Calculated Osmolality Calcium - Assessment (1) Pneumonia Acute J18.9 - PNEUMONIA, UNSPECIFIED ORGANISM Qualifiers: Pneumonia type: due to unspecified organism Laterality: left Lung location: lower lobe of lung Qualified Code(s): J18.1 - Lobar pneumonia, unspecified organism Comment/Plan: Continue cefepime and azithromycin. Does have drug resistant Pseudomonas in his urine. This unfortunately is resistant to quinolones. Continue IV antibiotics, pulmonary toilet and supportive care. (2) GAURANG (acute kidney injury) Acute N17.9 - ACUTE KIDNEY FAILURE, UNSPECIFIED Comment/Plan: Creatinine stable at 1.7. Renal ultrasound negative. Continue to monitor. Holding is TANYA -inhibitor. (3) DMII (diabetes mellitus, type 2) Acute E11.9 - TYPE 2 DIABETES MELLITUS WITHOUT COMPLICATIONS Qualifiers: Diabetes mellitus complication status: with kidney complications Diabetes mellitus complication detail: with chronic kidney disease Diabetes mellitus oil heaterman insulin use: without oil heaterman use Chronic kidney disease stage: stage 4 (severe) Qualified Code(s): E11.22 - Type 2 diabetes mellitus with diabetic chronic kidney disease; N18.4 - Chronic kidney disease, stage 4 (severe ) Comment/Plan: Accu-Cheks and sliding scale insulin. (4) HLD (hyperlipidemia) Acute E78.5 - HYPERLIPIDEMIA, UNSPECIFIED Qualifiers: Hyperlipidemia type: other hyperlipidemia Qualified Code(s): E78.4 - Other hyperlipidemia Comment/Plan: Continue home statin (5) UTI (urinary tract infection) Acute N39.0 - URINARY TRACT INFECTION, SITE NOT SPECIFIED Qualifiers: Urinary tract infection type: acute cystitis Hematuria presence: with hematuria Qualified Code(s): N30.01 - Acute cystitis with hematuria Comment/Plan: Pseudomonas aeruginosa multi drug-resistant and have switched antibiotic to cefepime from Levaquin. Case Care Discussed with: Patient, Nursing Staff, Physical Therapy, Resource Management, Respiratory Therapy, Reconciliation Coordinator
[2016-09-29] MEDS: ATORVASTATIN 20 MG TAB PO SCH (21:48)
[2016-09-29] MEDS: TAMSULOSIN HCL 0.4 MG CAP PO SCH (21:48)
[2016-09-29] MEDS: CEFEPIME HYDROCHLORIDE 2 GM in D5W 100 ML IV SCH (22:34)
[2016-09-30 04:17] LABS: MPV 8.3 fL (7.4-10.4)
[2016-09-30 04:33] LABS: BLOOD UREA NITROGEN 37 MG/DL (9-20); CALCIUM 8.8 MG/DL (8.4-10.2); CALCULATED OSMOLALITY 265 MOs/Kg (270-290); CHLORIDE 99 mEq/L (98-107); GLUCOSE 64 MG/DL (70-99); SODIUM LEVEL 134 mEq/L (137-146)
[2016-09-30] MEDS: REGULAR INSULIN 100 UNITS/ML - 3 ML VIAL SQ SCH ×4 (05:40→22:53)
[2016-09-30 06:57] LABS: LEUKOCYTES/URINE 2+ (NEGATIVE); NITRITE/URINE NEG (NEGATIVE); RBC/URINE 0-2 (0-2); URINE OCCULT BLOOD 1+ (NEG/TRACE)
[2016-09-30] MEDS: GLIMEPIRIDE 2 MG TAB PO SCH (10:43)
[2016-09-30] MEDS: Verapamil 120 MG TAB PO SCH ×2 (10:43→22:53)
[2016-09-30] MEDS: DONEPEZIL HCL 5 MG TAB PO SCH (10:43)
[2016-09-30] MEDS: FINASTERIDE 5 MG TAB PO SCH (10:43)
[2016-09-30] MEDS: GABAPENTIN 300 MG CAP PO SCH ×2 (10:43→22:52)
--- NOTE | 2016-09-30 12:01 | PCM.CARD ---
- Subjective Current Assessment: No New Symptoms (Patient appears much more comfortable today. He is in no distress. His son is at the bedside.) Vital Signs: Last Vital Signs Temp 98.7 F 09/30/16 11:18 Pulse 84 09/30/16 11:18 Resp 15 09/30/16 11:18 BP 109/65 09/30/16 11:18 Pulse Ox 94 09/30/16 11:18 Heart Sounds: S1 & S2 (Cardiac and pulmonary evaluation is unchanged.) - Assessment/Plan (1) Presence of permanent cardiac pacemaker Acute Z95.0 - PRESENCE OF CARDIAC PACEMAKER Comment/Plan: I had a lengthy discussion with the pacemaker leather goods sales representative from [employer]. Patient's pacemaker is functioning satisfactorily and no changes were made. We will discontinue are follow-up of this patient. Please do not hesitate to call us if there are any questions about his cardiovascular management. He needs to get an appointment with his heart doctors in [place] after discharge. 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 (3) Pneumonia Acute J18.9 - PNEUMONIA, UNSPECIFIED ORGANISM due to unspecified organism left lower lobe of lung J18.1 - Lobar pneumonia, unspecified organism
[2016-09-30] MEDS: NS 1,000 ML IV SCH (12:08)
[2016-09-30] MEDS: PROBIOTIC BLEND TAB PO SCH ×2 (12:08→16:42)
--- NOTE | 2016-09-30 15:14 | GENMEDPROG ---
Chief Complaint: Slowly feeling better. Still persistent infection and urine but improving significantly. Notes Reviewed: Yes Events from last night noted and discussed with Clinical Staff Current Medication List: Reviewed Currently: Reports: Cough, JIMÉNEZ, SOB. Denies: Nausea and Vomiting, Reflux Sx, Abdominal Pain DVT Prophylaxis: Yes - Physical Examination Vital Signs and I&O: Last Vital Signs Temp 98.7 F 09/30/16 11:18 Pulse 87 09/30/16 12:00 Resp 15 09/30/16 11:18 BP 109/65 09/30/16 11:18 Pulse Ox 94 09/30/16 11:18 Oxygen Pulse Oxygen Saturation 94 O2 Device Room Air Oxygen Flow Rate 2 Fraction of Inspired Oxygen ( FIO2) Intake & Output 09/27/16 09/28/16 09/29/16 09/30/16 23:59 23:59 23:59 23:59 Intake Total 2669 1501 1305 896 Output Total 2850 1375 1825 650 Balance -181 126 -520 246 Patient's weight 66.814 kg 64.274 kg 64.501 kg 63.276 kg General: Alert, Oriented x3, Cooperative, No acute distress, Well appearing, Well nourished HEENT: Normal (Normocephalic, atraumatic;EOMI.Sclera white, Nares patent, without discharge or bleeding. No oropharyngeal lesions or erythema. Mucous membranes are dry.), PERRLA, EOMI, Anicteric Sclera, Other (poor hearing) Neck: Non-tender, Normal Trachea alignment, Normal inspection (No cervical lymphadenopathy. No supraclavicular lymphadenopathy.), No Masses palpable, Limited range of motion, Supple Lymphatics: Normal (no adenopathy). negative: Adenopathy Respiratory: Diminished, Rhonchi Cardiovascular: Regular rate and rhythm (No bradycardia or tachycardia), Normal S1, No Gallops,Rubs/Murmurs, Normal S2, Good Pedal Pulses (DP pulses 2+ bilaterally) GI: Normal bowel sounds (normal active sounds), Soft (non-distended), Non tender , No hepatospenomegaly, No masses Extremities/Musculoskeletal: Normal pulses (DP pulses 2+ bilaterally), Swelling (LLE 1+ EDEMA RLE NONE), Edema (LLE 1+ EDEMA RLE NONE). negative: Clubbing, Cyanosis Skin: Warm,Dry and Intact, No rashes, No significant lesion Neurological: Normal tone, Cranial nerves 3-12 NL ( 2-12 grossly intact.) Psych/Mental Status: Appropriate, Normal Affect Lab/DI/Studies Reviewed: Laboratory Results - last 24 hr 09/29/16 09/29/16 09/30/16 15:39 20:23 02:55 WBC RBC Hgb Hct MCV MCH MCHC RDW Plt Count MPV Sodium 134 L Potassium 4.9 Chloride 99 Carbon Dioxide 29 Anion Gap 11 BUN 37 H Creatinine 1.80 H Estimated GFR (MDRD) 36 L Glucose 64 L POC Capillary Glucose 87 218 H Calculated Osmolality 265 L Calcium 8.8 Urine Color Urine Clarity Urine pH Ur Specific [place] Urine Protein Urine Glucose (UA) Urine Ketones Urine Occult Blood Urine Nitrite Urine Bilirubin Urine Urobilinogen Ur Leukocyte Esterase Urine RBC Urine WBC Ur Epithelial Cells Urine Bacteria Urine Mucus 09/30/16 09/30/16 09/30/16 02:55 05:14 06:17 WBC 13.1 H RBC 4.44 L Hgb 11.8 L Hct 36.0 L MCV 81 MCH 26.5 L MCHC 32.7 L RDW 15.5 H Plt Count 189 MPV 8.3 Sodium Potassium Chloride Carbon Dioxide Anion Gap BUN Creatinine Estimated GFR (MDRD) Glucose POC Capillary Glucose 81 Calculated Osmolality Calcium Urine Color Yellow Urine Clarity Sl hzy Urine pH 6.0 Ur Specific [place] 1.005 Urine Protein 1+ H Urine Glucose (UA) Neg Urine Ketones Neg Urine Occult Blood 1+ H Urine Nitrite Neg Urine Bilirubin Neg Urine Urobilinogen <2.0 Ur Leukocyte Esterase 2+ H Urine RBC 0-2 Urine WBC 10-20 H Ur Epithelial Cells Occ Urine Bacteria Few Urine Mucus Occ 09/30/16 11:23 WBC RBC Hgb Hct MCV MCH MCHC RDW Plt Count MPV Sodium Potassium Chloride Carbon Dioxide Anion Gap BUN Creatinine Estimated GFR (MDRD) Glucose POC Capillary Glucose 209 H Calculated Osmolality Calcium Urine Color Urine Clarity Urine pH Ur Specific [place] Urine Protein Urine Glucose (UA) Urine Ketones Urine Occult Blood Urine Nitrite Urine Bilirubin Urine Urobilinogen Ur Leukocyte Esterase Urine RBC Urine WBC Ur Epithelial Cells Urine Bacteria Urine Mucus - Assessment (1) Pneumonia Acute J18.9 - PNEUMONIA, UNSPECIFIED ORGANISM Qualifiers: Pneumonia type: due to unspecified organism Laterality: left Lung location: lower lobe of lung Qualified Code(s): J18.1 - Lobar pneumonia, unspecified organism Comment/Plan: Continue cefepime and azithromycin. Does have drug resistant Pseudomonas in his urine. This unfortunately is resistant to quinolones. Continue IV antibiotics, pulmonary toilet and supportive care. Increase activity and ambulation. (2) GAURANG (acute kidney injury) Acute N17.9 - ACUTE KIDNEY FAILURE, UNSPECIFIED Comment/Plan: Creatinine stable. Renal ultrasound negative. Continue to monitor. Holding is TANYA- inhibitor. (3) DMII (diabetes mellitus, type 2) Acute E11.9 - TYPE 2 DIABETES MELLITUS WITHOUT COMPLICATIONS Qualifiers: Diabetes mellitus complication status: with kidney complications Diabetes mellitus complication detail: with chronic kidney disease Diabetes mellitus manager terminal insulin use: without manager terminal use Chronic kidney disease stage: stage 4 (severe) Qualified Code(s): E11.22 - Type 2 diabetes mellitus with diabetic chronic kidney disease; N18.4 - Chronic kidney disease, stage 4 (severe ) Comment/Plan: Accu-Cheks and sliding scale insulin. (4) UTI (urinary tract infection) Acute N39.0 - URINARY TRACT INFECTION, SITE NOT SPECIFIED Qualifiers: Urinary tract infection type: acute cystitis Hematuria presence: with hematuria Qualified Code(s): N30.01 - Acute cystitis with hematuria Comment/Plan: Continue cefepime. Repeat UA shows significant improvement but still some persistent infection. Continue IV antibiotics and monitor. (5) HLD (hyperlipidemia) Acute E78.5 - HYPERLIPIDEMIA, UNSPECIFIED Qualifiers: Hyperlipidemia type: other hyperlipidemia Qualified Code(s): E78.4 - Other hyperlipidemia Comment/Plan: Continue home statin Case Care Discussed with: Patient, Nursing Staff, Resource Management, Cat Sitter
[2016-09-30] MEDS: ENOXAPARIN 30 MG/0.3 ML PFS SQ SCH (16:41)
[2016-09-30] MEDS: ATORVASTATIN 20 MG TAB PO SCH (22:52)
[2016-09-30] MEDS: TAMSULOSIN HCL 0.4 MG CAP PO SCH (22:52)
[2016-09-30] MEDS: CEFEPIME HYDROCHLORIDE 2 GM in D5W 100 ML IV SCH (22:53)
[2016-10-01 04:00] LABS: MPV 8.3 fL (7.4-10.4)
[2016-10-01 04:07] LABS: BLOOD UREA NITROGEN 41 MG/DL (9-20); CALCIUM 8.9 MG/DL (8.4-10.2); CALCULATED OSMOLALITY 269 MOs/Kg (270-290); CHLORIDE 100 mEq/L (98-107); GLUCOSE 154 MG/DL (70-99); SODIUM LEVEL 133 mEq/L (137-146)
[2016-10-01] MEDS: REGULAR INSULIN 100 UNITS/ML - 3 ML VIAL SQ SCH ×4 (06:26→21:03)
[2016-10-01 07:24] LABS: LEUKOCYTES/URINE 2+ (NEGATIVE); NITRITE/URINE NEG (NEGATIVE); URINE OCCULT BLOOD 1+ (NEG/TRACE); WBC/URINE 20-30 (0-2)
[2016-10-01] MEDS: DONEPEZIL HCL 5 MG TAB PO SCH (08:14)
[2016-10-01] MEDS: GABAPENTIN 300 MG CAP PO SCH ×2 (08:14→21:02)
[2016-10-01] MEDS: Verapamil 120 MG TAB PO SCH ×2 (08:14→21:02)
[2016-10-01] MEDS: FINASTERIDE 5 MG TAB PO SCH (08:14)
--- NOTE | 2016-10-01 08:34 | GENMEDPROG ---
Chief Complaint: Still does not feel good. Still with persistent pseudomonal infection despite appropriate antibiotics. Respiratory status is now stable Notes Reviewed: Yes Events from last night noted and discussed with Clinical Staff Current Medication List: Reviewed Currently: Reports: Cough, JIMÉNEZ, SOB. Denies: Nausea and Vomiting, Reflux Sx, Abdominal Pain DVT Prophylaxis: Yes - Physical Examination Vital Signs and I&O: Last Vital Signs Temp 98.6 F 10/01/16 08:00 Pulse 70 10/01/16 08:00 Resp 18 10/01/16 08:00 BP 131/68 10/01/16 08:00 Pulse Ox 92 10/01/16 08:00 Oxygen Pulse Oxygen Saturation 92 O2 Device Room Air Oxygen Flow Rate 2 Fraction of Inspired Oxygen ( FIO2) Intake & Output 09/28/16 09/29/16 09/30/16 10/01/16 23:59 23:59 23:59 23:59 Intake Total 1501 1305 1498 344 Output Total 1375 1825 1000 1400 Balance 126 -520 498 -1056 Patient's weight 64.274 kg 64.501 kg 63.276 kg 63.004 kg General: Alert, Oriented x3, Cooperative, No acute distress, Well appearing, Well nourished HEENT: Normal (Normocephalic, atraumatic;EOMI.Sclera white, Nares patent, without discharge or bleeding. No oropharyngeal lesions or erythema. Mucous membranes are dry.), PERRLA, EOMI, Anicteric Sclera, Other (poor hearing) Neck: Non-tender, Normal Trachea alignment, Normal inspection (No cervical lymphadenopathy. No supraclavicular lymphadenopathy.), No Masses palpable, Limited range of motion, Supple Lymphatics: Normal (no adenopathy). negative: Adenopathy Respiratory: Diminished, Rhonchi Cardiovascular: Regular rate and rhythm (No bradycardia or tachycardia), Normal S1, No Gallops,Rubs/Murmurs, Normal S2, Good Pedal Pulses (DP pulses 2+ bilaterally) GI: Normal bowel sounds (normal active sounds), Soft (non-distended), Non tender , No hepatospenomegaly, No masses Extremities/Musculoskeletal: Normal pulses (DP pulses 2+ bilaterally), Swelling (LLE 1+ EDEMA RLE NONE), Edema (LLE 1+ EDEMA RLE NONE). negative: Clubbing, Cyanosis Skin: Warm,Dry and Intact, No rashes, No significant lesion Neurological: Normal tone, Cranial nerves 3-12 NL ( 2-12 grossly intact.) Psych/Mental Status: Appropriate, Normal Affect Lab/DI/Studies Reviewed: Laboratory Results - last 24 hr 09/30/16 09/30/16 09/30/16 11:23 16:04 20:53 WBC RBC Hgb Hct MCV MCH MCHC RDW Plt Count MPV Sodium Potassium Chloride Carbon Dioxide Anion Gap BUN Creatinine Estimated GFR (MDRD) Glucose POC Capillary Glucose 209 H 101 H 234 H Calculated Osmolality Calcium Urine Color Urine Clarity Urine pH Ur Specific [place] Urine Protein Urine Glucose (UA) Urine Ketones Urine Occult Blood Urine Nitrite Urine Bilirubin Urine Urobilinogen Ur Leukocyte Esterase Urine RBC Urine WBC Urine Bacteria Urine Mucus 10/01/16 10/01/16 10/01/16 03:20 03:20 05:31 WBC 11.5 H RBC 4.21 L Hgb 11.1 L Hct 34.4 L MCV 82 MCH 26.4 L MCHC 32.4 L RDW 15.1 H Plt Count 179 MPV 8.3 Sodium 133 L Potassium 5.0 Chloride 100 Carbon Dioxide 28 Anion Gap 10 BUN 41 H Creatinine 1.70 H Estimated GFR (MDRD) 38 L Glucose 154 H POC Capillary Glucose 98 Calculated Osmolality 269 L Calcium 8.9 Urine Color Urine Clarity Urine pH Ur Specific [place] Urine Protein Urine Glucose (UA) Urine Ketones Urine Occult Blood Urine Nitrite Urine Bilirubin Urine Urobilinogen Ur Leukocyte Esterase Urine RBC Urine WBC Urine Bacteria Urine Mucus 10/01/16 06:45 WBC RBC Hgb Hct MCV MCH MCHC RDW Plt Count MPV Sodium Potassium Chloride Carbon Dioxide Anion Gap BUN Creatinine Estimated GFR (MDRD) Glucose POC Capillary Glucose Calculated Osmolality Calcium Urine Color Yellow Urine Clarity Clear Urine pH 6.0 Ur Specific [place] 1.005 Urine Protein 1+ H Urine Glucose (UA) Trace Urine Ketones Neg Urine Occult Blood 1+ H Urine Nitrite Neg Urine Bilirubin Neg Urine Urobilinogen <2.0 Ur Leukocyte Esterase 2+ H Urine RBC 5-10 H Urine WBC 20-30 H Urine Bacteria Few Urine Mucus Occ - Assessment (1) Pneumonia Acute J18.9 - PNEUMONIA, UNSPECIFIED ORGANISM Qualifiers: Pneumonia type: due to unspecified organism Laterality: left Lung location: lower lobe of lung Qualified Code(s): J18.1 - Lobar pneumonia, unspecified organism Comment/Plan: Overall much better. Due to persistent infection in his urine from drug resistant Pseudomonas. Will change cefepime to Primaxin. Increase activity and ambulate. Resting comfortably on room air (2) UTI (urinary tract infection) Acute N39.0 - URINARY TRACT INFECTION, SITE NOT SPECIFIED Qualifiers: Urinary tract infection type: acute cystitis Hematuria presence: with hematuria Qualified Code(s): N30.01 - Acute cystitis with hematuria Comment/Plan: Repeat UA shows improvement but still persistent infection despite a week of anti pseudomonal antibiotics. Cefepime is least active against Pseudomonas of current choices based on culture. Will change to Primaxin and monitor. May end up requiring home IV antibiotics but as clinically he has been improving would continue to try to treat here for another 1-2 days (3) GAURANG (acute kidney injury) Acute N17.9 - ACUTE KIDNEY FAILURE, UNSPECIFIED Comment/Plan: Creatinine stable. Renal ultrasound negative. Continue to monitor. Holding is TANYA- inhibitor. (4) DMII (diabetes mellitus, type 2) Acute E11.9 - TYPE 2 DIABETES MELLITUS WITHOUT COMPLICATIONS Qualifiers: Diabetes mellitus complication status: with kidney complications Diabetes mellitus complication detail: with chronic kidney disease Diabetes mellitus local intermodal truck driver insulin use: without local intermodal truck driver use Chronic kidney disease stage: stage 4 (severe) Qualified Code(s): E11.22 - Type 2 diabetes mellitus with diabetic chronic kidney disease; N18.4 - Chronic kidney disease, stage 4 (severe ) Comment/Plan: Accu-Cheks and sliding scale insulin. (5) HLD (hyperlipidemia) Acute E78.5 - HYPERLIPIDEMIA, UNSPECIFIED Qualifiers: Hyperlipidemia type: other hyperlipidemia Qualified Code(s): E78.4 - Other hyperlipidemia Comment/Plan: Continue home statin Case Care Discussed with: Patient, Nursing Staff, Physical Therapy, Resource Management, Respiratory Therapy, Salesperson Art Objects
[2016-10-01] MEDS: IMIPENEM CILASTATIN 250 MG in D5W 100 ML IV SCH ×2 (10:39→16:28)
[2016-10-01] MEDS: GLIMEPIRIDE 2 MG TAB PO SCH (11:28)
[2016-10-01] MEDS: PROBIOTIC BLEND TAB PO SCH ×2 (11:58→16:22)
[2016-10-01] MEDS: NS 1,000 ML IV SCH ×2 (11:59→16:22)
[2016-10-01] MEDS: ENOXAPARIN 30 MG/0.3 ML PFS SQ SCH (16:22)
[2016-10-01] MEDS: TAMSULOSIN HCL 0.4 MG CAP PO SCH (21:02)
[2016-10-01] MEDS: ATORVASTATIN 20 MG TAB PO SCH (21:02)
[2016-10-02] MEDS: IMIPENEM CILASTATIN 250 MG in D5W 100 ML IV SCH ×3 (02:52→18:15)
[2016-10-02 05:04] LABS: MPV 8.4 fL (7.4-10.4)
[2016-10-02 05:08] LABS: BLOOD UREA NITROGEN 39 MG/DL (9-20); CALCIUM 8.9 MG/DL (8.4-10.2); CALCULATED OSMOLALITY 266 MOs/Kg (270-290); CHLORIDE 100 mEq/L (98-107); GLUCOSE 116 MG/DL (70-99); SODIUM LEVEL 133 mEq/L (137-146)
[2016-10-02] MEDS: REGULAR INSULIN 100 UNITS/ML - 3 ML VIAL SQ SCH ×4 (05:47→21:06)
[2016-10-02 05:55] LABS: SEG NEUTROPHIL 79 % (45-76)
[2016-10-02 05:57] LABS: TOTAL CELL COUNT 100
[2016-10-02] MEDS: GLIMEPIRIDE 2 MG TAB PO SCH (06:22)
[2016-10-02] MEDS: DONEPEZIL HCL 5 MG TAB PO SCH (10:01)
[2016-10-02] MEDS: FINASTERIDE 5 MG TAB PO SCH (10:02)
[2016-10-02] MEDS: Verapamil 120 MG TAB PO SCH ×2 (10:02→21:06)
[2016-10-02] MEDS: GABAPENTIN 300 MG CAP PO SCH ×2 (10:02→21:06)
--- NOTE | 2016-10-02 10:31 | GENMEDPROG ---
Chief Complaint: amb well getting iv primaxin for mdro uti still some burning on urination Notes Reviewed: Yes Events from last night noted and discussed with Clinical Staff Current Medication List: Reviewed Currently: Reports: Cough, JIMÉNEZ, SOB. Denies: Nausea and Vomiting, Reflux Sx, Abdominal Pain DVT Prophylaxis: Yes - Physical Examination Vital Signs and I&O: Last Vital Signs Temp 97.8 F 10/02/16 07:32 Pulse 71 10/02/16 10:00 Resp 18 10/02/16 07:32 BP 132/73 10/02/16 07:32 Pulse Ox 93 10/02/16 07:32 Oxygen Pulse Oxygen Saturation 93 O2 Device Room Air Oxygen Flow Rate 2 Fraction of Inspired Oxygen ( FIO2) Intake & Output 09/29/16 09/30/16 10/01/16 10/02/16 23:59 23:59 23:59 23:59 Intake Total 1305 1498 1348 120 Output Total 1825 1000 2775 1025 Balance -520 018 -2612 -838 Patient's weight 64.501 kg 63.276 kg 63.004 kg 64.773 kg General: Alert, Oriented x3, Cooperative, No acute distress, Well appearing, Well nourished HEENT: Normal (Normocephalic, atraumatic;EOMI.Sclera white, Nares patent, without discharge or bleeding. No oropharyngeal lesions or erythema. Mucous membranes are dry.), PERRLA, EOMI, Anicteric Sclera, Other (poor hearing) Neck: Non-tender, Normal Trachea alignment, Normal inspection (No cervical lymphadenopathy. No supraclavicular lymphadenopathy.), No Masses palpable, Limited range of motion, Supple Lymphatics: Normal (no adenopathy). negative: Adenopathy Respiratory: Diminished, Rhonchi Cardiovascular: Regular rate and rhythm (No bradycardia or tachycardia), Normal S1, No Gallops,Rubs/Murmurs, Normal S2, Good Pedal Pulses (DP pulses 2+ bilaterally) GI: Normal bowel sounds (normal active sounds), Soft (non-distended), Non tender , No hepatospenomegaly, No masses Extremities/Musculoskeletal: Normal pulses (DP pulses 2+ bilaterally), Swelling (LLE 1+ EDEMA RLE NONE), Edema (LLE 1+ EDEMA RLE NONE). negative: Clubbing, Cyanosis Skin: Warm,Dry and Intact, No rashes, No significant lesion Neurological: Normal tone, Cranial nerves 3-12 NL ( 2-12 grossly intact.) Psych/Mental Status: Appropriate, Normal Affect Lab/DI/Studies Reviewed: 10/02/16 04:05 10/02/16 04:05 Laboratory Results - last 24 hr 10/01/16 10/01/16 10/01/16 11:07 16:36 20:41 WBC RBC Hgb Hct MCV MCH MCHC RDW Plt Count MPV Neut % (Auto) Lymph % (Auto) [place] % (Auto) Eos % (Auto) Baso % (Auto) Absolute Neuts (auto) Absolute Lymphs (auto) Seg Neuts % (Manual) Band Neutrophils % Lymphocytes % (Manual) Monocytes % (Manual) Eosinophils % (Manual) Metamyelocytes % Absolute Neutrophils Absolute Lymphocytes Platelet Estimate RBC Morphology Sodium Potassium Chloride Carbon Dioxide Anion Gap BUN Creatinine Estimated GFR (MDRD) Glucose POC Capillary Glucose 192 H 205 H 141 H Calculated Osmolality Calcium 10/02/16 10/02/16 10/02/16 04:05 04:05 05:43 WBC 11.9 H RBC 4.20 L Hgb 11.0 L Hct 34.5 L MCV 82 MCH 26.2 L MCHC 32.0 L RDW 15.1 H Plt Count 180 MPV 8.4 Neut % (Auto) Cancelled Lymph % (Auto) Cancelled [place] % (Auto) Cancelled Eos % (Auto) Cancelled Baso % (Auto) Cancelled Absolute Neuts (auto) Cancelled Absolute Lymphs (auto) Cancelled Seg Neuts % (Manual) 79 H Band Neutrophils % 0 Lymphocytes % (Manual) 8 L Monocytes % (Manual) 7 Eosinophils % (Manual) 3 Metamyelocytes % 3 H Absolute Neutrophils 9.40 H Absolute Lymphocytes 0.95 Platelet Estimate Norm RBC Morphology 1+ ellipto Sodium 133 L Potassium 5.0 Chloride 100 Carbon Dioxide 27 Anion Gap 11 BUN 39 H Creatinine 1.70 H Estimated GFR (MDRD) 38 L Glucose 116 H POC Capillary Glucose 114 H Calculated Osmolality 266 L Calcium 8.9 - Assessment (1) GAURANG (acute kidney injury) Acute N17.9 - ACUTE KIDNEY FAILURE, UNSPECIFIED Comment/Plan: Creatinine stable. Renal ultrasound negative. Continue to monitor. Holding is TANYA- inhibitor. (2) DMII (diabetes mellitus, type 2) Acute E11.9 - TYPE 2 DIABETES MELLITUS WITHOUT COMPLICATIONS Qualifiers: Diabetes mellitus complication status: with kidney complications Diabetes mellitus complication detail: with chronic kidney disease Diabetes mellitus intermediate school teacher insulin use: without mcfp use Chronic kidney disease stage: stage 4 (severe) Qualified Code(s): E11.22 - Type 2 diabetes mellitus with diabetic chronic kidney disease; N18.4 - Chronic kidney disease, stage 4 (severe ) Comment/Plan: Accu-Cheks and sliding scale insulin. (3) Pneumonia Acute J18.9 - PNEUMONIA, UNSPECIFIED ORGANISM Qualifiers: Pneumonia type: due to unspecified organism Laterality: left Lung location: lower lobe of lung Qualified Code(s): J18.1 - Lobar pneumonia, unspecified organism Comment/Plan: Overall much better. Due to persistent infection in his urine from drug resistant Pseudomonas. Will change cefepime to Primaxin. Increase activity and ambulate. Resting comfortably on room air (4) HLD (hyperlipidemia) Acute E78.5 - HYPERLIPIDEMIA, UNSPECIFIED Qualifiers: Hyperlipidemia type: other hyperlipidemia Qualified Code(s): E78.4 - Other hyperlipidemia Comment/Plan: Continue home statin (5) UTI (urinary tract infection) Acute N39.0 - URINARY TRACT INFECTION, SITE NOT SPECIFIED Qualifiers: Urinary tract infection type: acute cystitis Hematuria presence: with hematuria Qualified Code(s): N30.01 - Acute cystitis with hematuria Comment/Plan: Repeat UA shows improvement but still persistent infection despite a week of anti pseudomonal antibiotics. Cefepime is least active against Pseudomonas of current choices based on MICS. Yesterday changed cefepime to Primaxin and monitor. May end up requiring home IV antibiotics but as clinically he has been improving will discharge in a.m. on IV Primaxin for the next 6 days. (6) Cognitive impairment Chronic R41.89 - OTH SYMPTOMS AND SIGNS W COGNITIVE FUNCTIONS AND AWARENESS Comment/Plan: poor historian (7) Presbycusis Chronic H91.10 - PRESBYCUSIS, UNSPECIFIED EAR Qualifiers: Laterality: bilateral Qualified Code(s): H91.13 - Presbycusis, bilateral Comment/Plan: [place] makes communication difficult w/ cog impairment Case Care Discussed with: Patient, Nursing Staff, Resource Management Education/Counseling Given To: Patient Education/Counseling Given Regarding: Diagnosis, Treatment Total Time: 38 min Critical Care: No Code: 11482 (12+)
[2016-10-02] MEDS ORDERED: LIDOCAINE 1% 30 ML VIAL (PRESERVATIVE FREE) ONE (10:54)
--- NOTE | 2016-10-02 12:08 | DIRPT ---
CLINICAL DATA: Need for long-term IV antibiotics EXAM: Power PICC LINE PLACEMENT WITH ULTRASOUND AND FLUOROSCOPIC GUIDANCE FLUOROSCOPY TIME: 12 seconds PROCEDURE: The patient was advised of the possible risks and complications and agreed to undergo the procedure. The patient was then brought to the angiographic suite for the procedure. The right arm was prepped with chlorhexidine, draped in the usual sterile fashion using maximum barrier technique (cap and mask, sterile gown, sterile gloves, large sterile sheet, hand hygiene and cutaneous antisepsis) and infiltrated locally with 1% Lidocaine. Ultrasound demonstrated patency of the right/left basilic vein, and this was documented with an image. Under real-time ultrasound guidance, this vein was accessed with a 21 gauge micropuncture needle and image documentation was performed. A 0.018 wire was introduced in to the vein. Over this, a 5 [place] single lumen power PICC was advanced to the lower SVC/right atrial junction. The catheter was trimmed to 39.5 cm. Fluoroscopy during the procedure and fluoro spot radiograph confirms appropriate catheter position. The catheter was flushed and covered with a sterile dressing. COMPLICATIONS: None immediate IMPRESSION: Successful right arm power PICC line placement with ultrasound and fluoroscopic guidance. The catheter is ready for use. Electronically Signed By: Amandeep Gutierrez M.D. On: 10/02/2016 12:06
[2016-10-02 12:10] VITALS: BMI 22.4
[2016-10-02] MEDS: PROBIOTIC BLEND TAB PO SCH ×2 (14:43→18:15)
[2016-10-02] MEDS: NS 1,000 ML IV SCH (14:43)
[2016-10-02] MEDS ORDERED: KETOCONAZOLE 2% CREAM 15 GM TUBE TOP SCH (17:00)
[2016-10-02] MEDS: ENOXAPARIN 30 MG/0.3 ML PFS SQ SCH (18:15)
[2016-10-02] MEDS: KETOCONAZOLE 2% CREAM 15 GM TUBE TOP SCH (21:05)
[2016-10-02] MEDS: TAMSULOSIN HCL 0.4 MG CAP PO SCH (21:06)
[2016-10-02] MEDS: ATORVASTATIN 20 MG TAB PO SCH (21:06)
[2016-10-03] MEDS: IMIPENEM CILASTATIN 250 MG in D5W 100 ML IV SCH ×2 (03:00→09:47)
[2016-10-03 04:07] LABS: MPV 7.9 fL (7.4-10.4)
[2016-10-03 04:12] LABS: BLOOD UREA NITROGEN 39 MG/DL (9-20); CALCULATED OSMOLALITY 270 MOs/Kg (270-290); CHLORIDE 100 mEq/L (98-107); GLUCOSE 111 MG/DL (70-99); SODIUM LEVEL 135 mEq/L (137-146)
[2016-10-03] MEDS: REGULAR INSULIN 100 UNITS/ML - 3 ML VIAL SQ SCH ×2 (05:46→11:50)
[2016-10-03] MEDS: GLIMEPIRIDE 2 MG TAB PO SCH ×2 (06:34→09:46)
[2016-10-03 08:26] VITALS: TEMP 97.9
[2016-10-03] MEDS: KETOCONAZOLE 2% CREAM 15 GM TUBE TOP SCH (09:46)
[2016-10-03] MEDS: DONEPEZIL HCL 5 MG TAB PO SCH (09:47)
[2016-10-03] MEDS: GABAPENTIN 300 MG CAP PO SCH (09:47)
[2016-10-03] MEDS: FINASTERIDE 5 MG TAB PO SCH (09:47)
[2016-10-03] MEDS: Verapamil 120 MG TAB PO SCH (09:47)
[2016-10-03 11:44] VITALS: BP 140/66
[2016-10-03] MEDS: NS 1,000 ML IV SCH (11:45)
[2016-10-03] MEDS: PROBIOTIC BLEND TAB PO SCH (11:50)
[2016-10-03 14:25] VITALS: PULSE 83
--- NOTE | 2016-10-03 16:33 | PCM.DCS92 ---
- Final/Secondary Discharge Diagnosis (1) Pneumonia Acute J18.9 - PNEUMONIA, UNSPECIFIED ORGANISM Present on Admission: Yes due to unspecified organism left lower lobe of lung J18.1 - Lobar pneumonia, unspecified organism Comment: Overall much better. Due to persistent infection in his urine from drug resistant Pseudomonas. Will change cefepime to Primaxin. Increase activity and ambulate. Resting comfortably on room air (2) UTI (urinary tract infection) Acute N39.0 - URINARY TRACT INFECTION, SITE NOT SPECIFIED Present on Admission: Yes acute cystitis with hematuria N30.01 - Acute cystitis with hematuria Comment: Repeat UA shows improvement but still persistent infection despite a week of anti pseudomonal antibiotics. Cefepime is least active against Pseudomonas of current choices based on MICS. Yesterday changed cefepime to Primaxin and monitor. May end up requiring home IV antibiotics but as clinically he has been improving will discharge in a.m. on IV Primaxin for the next 6 days. (3) DMII (diabetes mellitus, type 2) Acute E11.9 - TYPE 2 DIABETES MELLITUS WITHOUT COMPLICATIONS Present on Admission: Yes with kidney complications with chronic kidney disease without terminal operator use stage 4 (severe) E11.22 - Type 2 diabetes mellitus with diabetic chronic kidney disease; N18.4 - Chronic kidney disease, stage 4 (severe) Comment: Accu-Cheks and sliding scale insulin. (4) GAURANG (acute kidney injury) Acute N17.9 - ACUTE KIDNEY FAILURE, UNSPECIFIED Present on Admission: Yes Comment: Creatinine stable. Renal ultrasound negative. Continue to monitor. Holding TANYA-inhibitor. (5) HLD (hyperlipidemia) Acute E78.5 - HYPERLIPIDEMIA, UNSPECIFIED Present on Admission: Yes other hyperlipidemia E78.4 - Other hyperlipidemia Comment: Continue home statin (6) Cognitive impairment Resolved R41.89 - OTH SYMPTOMS AND SIGNS W COGNITIVE FUNCTIONS AND AWARENESS Present on Admission: Yes Comment: poor historian (7) Presbycusis Chronic H91.10 - PRESBYCUSIS, UNSPECIFIED EAR Present on Admission: Yes bilateral H91.13 - Presbycusis, bilateral Comment: [place] makes communication difficult w/ cog impairment Discharge Disposition: Discharge w/ Home Health Discharge Condition: Stable Cognitive Discharge Status: Unimpaired Fuctional Discharge Status: Walker Assistance Physician Follow up/Referrals: Darline Fernandes MD [Primary Care Provider] - Hospital to call w/ appt. New Prescriptions: Imipenem Cilastatin [Primaxin] 250 mg IV Q8H #18 vial Ketoconazole [ Nizoral] 15 gm TOP BID #1 tube O2 Device: Room Air Additional Instructions: A sales and service representative from Dr. Fernandes's office will call with appointment Diet at Discharge: Heart Healthy Activity: As Tolerated Call Office For: Worsening Symptoms, Pain Uncontrolled By Meds Discontinue use of:: Alcohol, All Illegal Substances, All Types of Tobacco - DC Summary Notes Hospital Course Note:: Discharge summary on patient named WILFREDO BENTLEY admitted to [facility] on 09/22/16 by Praneeth Reno MD. Date of discharge is []. Code: 32026 (>30min.) - Physical Exam Vital Signs: Last Vital Signs Temp 97.9 F 10/03/16 11:43 Pulse 83 10/03/16 14:00 Resp 20 10/03/16 11:43 BP 140/66 10/03/16 11:43 Pulse Ox 96 10/03/16 11:43 Oxygen Pulse Oxygen Saturation 96 O2 Device Room Air Oxygen Flow Rate 2 Fraction of Inspired Oxygen ( FIO2) Constitutional: Alert Oriented to: Time, Person, Place - HEENT Head: Normal ( normocephalic) Eye: Normal (PERRL, EOMI, Sclera white) Oropharynx: Normal (Pharynx:Moist without exudate,Gums-no swelling) ENT EAC: Normal TMJ: Normal Nose: No Symptoms Reported (septum midline) - Respiratory/Cardiovascular Respiratory: Diminished, Rhonchi Cardiovascular: Normal (RRR , Normal S1, S2. No murmurs, rubs, or gallops. PMI non-displaced. Carotids: no carotid bruits. No bradycardia or tachycardia. DP pulses 2+ bilaterally.) - GI Auscultation: Normal (NABS) Palpation: Normal (Soft,No rebound or guarding, non distended) Tenderness: Non tender Antoine's Sign: Negative Rectal Exam: Deferred - Musculoskeletal Back: Normal (Non-Tender) Extremities: Normal (Normal tone, Pulses 2+ No cyanosis or edema, FROM) - Integumentary Skin: Normal (Warm dry no rashes) Lymphatics: Normal (no adenopathy). negative: Adenopathy - Neurologic Memory Impaired: Normal Motor Function: Normal (Motor 5/5 throughout.Normal tone, Pulses 2+ No cyanosis or edema, FROM) Cranial Nerve: Normal (CN II-XII intact sensation, strength 5/5) Cerebellar: Normal Mood Description: Normal Thought: Coherent Perception: Normal
== END 2016-10-03 17:45 | disposition home health service (06) | DRG 689 ==
LOC: ED 17:05 → PCU 19:36
PROVIDERS: ADMIT Internal Medicine; ATTEND Internal Medicine
PROC: 039 Upper Arteries, Drainage (ICD-10-PCS; 2016-09-22)
PROC: 05HB33Z Insertion of Infusion Device into Right Basilic Vein, Percutaneous Approach (ICD-10-PCS; principal; 2016-10-02)
PROC: B51M1ZA Fluoroscopy of Right Upper Extremity Veins using Low Osmolar Contrast, Guidance (ICD-10-PCS; 2016-10-02)
DX: N30.00 Acute cystitis without hematuria (principal); J18.1 Lobar pneumonia, unspecified organism; N17.9 Acute kidney failure, unspecified; J18.9 Pneumonia, unspecified organism; N18.4 Chronic kidney disease, stage 4 (severe); E11.22 Type 2 diabetes mellitus with diabetic chronic kidney disease; G30.1 Alzheimer's disease with late onset; B96.5 Pseudomonas (aeruginosa) (mallei) (pseudomallei) as the cause of diseases classified elsewhere; J44.9 Chronic obstructive pulmonary disease, unspecified; F02.80 Dementia in other diseases classified elsewhere, unspecified severity, without behavioral disturbance, psychotic disturbance, mood disturbance, and anxiety; I12.9 Hypertensive chronic kidney disease with stage 1 through stage 4 chronic kidney disease, or unspecified chronic kidney disease; R78.5 Finding of other psychotropic drug in blood; E78.4 Other hyperlipidemia; Z87.891 Personal history of nicotine dependence; Z79.84 Long term (current) use of oral hypoglycemic drugs; Z95.0 Presence of cardiac pacemaker; Z79.899 Other long term (current) drug therapy; H91.13 Presbycusis, bilateral
CPT/HCPCS: 36415; 36556; 36569; 36600; 51798; 70450; 71020; 76770; 76937; 77001; 80048; 80053; 81001; 82043; 82550; 82553; 82803; 82962; 83036; 83605; 83735; 83880; 84484; 85007; 85025; 85027; 85610; 85730; 87040; 87077; 87086; 87186; 90471; 90656; 90732; 93005; 93306; 96372; 96374; 97165; 98960; 99284; G0237; J0456; J0692; J0696; J0743; J1650; J1956; J2001; J2930; J3475; J3490; J7060; J7070